=== PATIENT | female | born 1950 | race Caucasian/White ===

== ENCOUNTER 2019-06-29 00:16 | Day surgery (SDC) | payer OTHER, SELFPAY ==
[2019-06-22 14:11] VITALS: BMI 24.6
--- NOTE | 2019-06-27 14:50 | WPDANESEPP ---
Anes - Eval Pre Procedure Procedure: Operation Date: 06/29/19 08:00 Proposed Procedures p Esophagogastroduodenoscopy & Screening Colonoscopy - Gregor Galdamez MD Date/Time: 06/27/19 14:50 Pre Op Diagnosis: Gerd/ Neoplasm Screening, Fam Hx Colon Polyps Patient Data Age: 69 Gender: F Height: 5 ft 5 in Weight: 67.2 kg Allergies Allergy/AdvReac Type Severity Reaction Status Date / Time No Known Allergies Allergy Verified 06/22/19 14:11 Home Medications Medication Instructions Recorded Confirmed Type alprazolam 0.25 mg tablet 0.25 mg PO DAILY #90 tablet 05/25/19 06/22/19 Rx rosuvastatin 10 mg tablet 10 mg PO DAILY #90 tablet 05/25/19 06/22/19 Rx aspirin [Aspirin Low Dose] 81 mg PO DAILY 06/22/19 06/22/19 History omeprazole 40 mg PO DAILY 06/22/19 06/22/19 History Patient hx anesthesia problems: none Family hx anesthesia problems: none PMFSH Past Medical History Medical History (Updated 06/27/19 @ 14:50 by Carina Gomes CRNA) Chronic constipation Hepatitis A Hyperlipidemia Postmenopausal Surgical History Surgical History (Updated 06/27/19 @ 14:50 by Carina Gomes CRNA) H/O mitral valve repair ~2014 Family History Family History Mother Diabetes mellitus, Onset Age: 79 Depression Hypertension Family history of Alzheimer's disease Family history of malignant neoplasm of breast in first degree relative Father Hypertension Family history of cardiovascular disease Family history of kidney disease Malignant neoplasm of prostate, Onset Age: 83 Social History Social History Smoking status: Never smoker Alcohol intake: current Exam Day of Procedure 06/27/19 14:50
[2019-06-29 07:08] VITALS: BP 106/69; PULSE 79; RESP 16; TEMP 36.4; O2SAT 100
[2019-06-29] MEDS: LACTATED RINGERS 1,000 ML 150 ML IV CONT (07:13)
--- NOTE | 2019-06-29 07:38 | P.PNAN_ITS ---
Anes - Eval Final PreProcedure Day of Procedure 06/29/19 07:38 Patient weight: normal Heart: regular rate and rhythm Lungs: clear to auscultation Airway: Mallampati scale class II Neurological: alert and oriented Last oral intake: >/= 8 hours ASA classification: II Emergent: no Anesthetic plan: proceed Anesthesia type and monitoring: general GIVS and standard monitoring Informed Consent: The patient's anesthetic plan and its attendant risks and b enefits were discussed with the patient/family/POA. Questions were solicited and answers provided to the satisfaction of the patient/family/POA.
--- NOTE | 2019-06-29 07:50 | P.CONGI_ITS ---
Assessment and Plan Additional Plan This is a 69-year-old white female patient seen in evaluation at the request of Dr. Maier. Patient complains of epigastric pain for many years. She takes Tums for relief. Because of ongoing pain in EGD is requested. She denies any dysphagia. She denies any chest pain. Her weight has remained stable. Patient's family history is significant her father had colon polyps. Patient states that her own weight appetite are normal. She reports a tendency to constipation. States that she tries to get fiber in her diet. She denies any blood in her stools. Past medical history is significant for hyperlipidemia. Chronic constipation is reported. Current medications include aspirin, rosuvastatin, alprazolam, she was advised to take omeprazole but has not done so. Physical exam reveals her to be alert. Oriented x3. HEENT exam unremarkable. Lungs are clear to auscultation and percussion. Heart is without murmur or extra sounds. Abdominal exam bowel sounds are present soft nontender with no hepatosplenomegaly. Digital external rectal exam is normal. Impression 1. Neoplasia screening. Advised because of family history of colon polyps. 2. Family history of colon polyps in her father. 3. Epigastric pain. Appears to be consistent with dyspepsia. Agree with and has had is. Omeprazole has been suggested in seems appropriate. Further recommendations will be given after EGD. Plan is to proceed with both colonoscopy an EGD today. Colonoscopy may be suggested at intervals in the future because of family history of colon polyps. GI Consult Note Consult date/time: 06/29/19 07:50 HPI: Stephanie Treviño is a 69 year old female [facility] Past Medical History Medical History (Updated 06/27/19 @ 14:50 by Carina Gomes CRNA) Chronic constipation Hepatitis A Hyperlipidemia Postmenopausal Surgical History Surgical History (Updated 06/27/19 @ 14:50 by Carina Gomes CRNA) H/O mitral valve repair ~2014 Family History Family History Mother Diabetes mellitus, Onset Age: 79 Depression Hypertension Family history of Alzheimer's disease Family history of malignant neoplasm of breast in first degree relative Father Hypertension Family history of cardiovascular disease Family history of kidney disease Malignant neoplasm of prostate, Onset Age: 83 Social History Social History Smoking status: Never smoker Alcohol intake: current Meds Home Medications and Allergies Home Medications Medication Instructions Recorded Confirmed Type alprazolam 0.25 mg tablet 0.25 mg PO DAILY #90 tablet 05/25/19 06/22/19 Rx rosuvastatin 10 mg tablet 10 mg PO DAILY #90 tablet 05/25/19 06/22/19 Rx aspirin [Aspirin Low Dose] 81 mg PO DAILY 06/22/19 06/22/19 History omeprazole 40 mg PO DAILY 06/22/19 06/22/19 History Allergies Allergy/AdvReac Type Severity Reaction Status Date / Time No Known Allergies Allergy Verified 06/29/19 07:06 Vital Signs Vital Signs - 24 hr 06/29/19 07:08 Temperature 36.4 C L Pulse Rate 79 Respiratory Rate 16 Blood Pressure 106/69 Pulse Oximetry 100
[2019-06-29] MEDS: BENZOCAINE (*SP) 60 ML SPRAY CAN (HURRICAINE) 1 SPRAY MUCOUS MEM (08:11)
[2019-06-29 08:45] VITALS: BP 107/73; PULSE 88; RESP 18; O2SAT 97
[2019-06-29 08:55] VITALS: BP 110/71; PULSE 76; RESP 20; O2SAT 98
[2019-06-29 09:05] VITALS: BP 115/82; PULSE 84; RESP 17; O2SAT 97
== END 2019-06-29 09:25 | disposition home or self-care (01) ==
PROVIDERS: PCP Family Medicine; Visit Provider Internal Medicine Gastroenterology
PROC: 0DJ08ZZ Inspection of Upper Intestinal Tract, Via Natural or Artificial Opening Endoscopic (ICD-10-PCS; CPT 43235; principal; 2019-06-29 08:00)
DX: Z12.11 Encounter for screening for malignant neoplasm of colon (principal); K57.30 Diverticulosis of large intestine without perforation or abscess without bleeding; K64.8 Other hemorrhoids; Z83.71 Family history of colonic polyps; K22.70 Barrett's esophagus without dysplasia; K21.0 Gastro-esophageal reflux disease with esophagitis; K59.09 Other constipation; E78.5 Hyperlipidemia, unspecified; B15.9 Hepatitis A without hepatic coma; Z79.82 Long term (current) use of aspirin
CPT/HCPCS: 43239; 45378; 88305; J2704; J7120

== ENCOUNTER → 2020-10-26 13:23 | Outpatient (CLI) | payer MEDICARE, OTHER, SELFPAY ==
--- NOTE | ~2020-10-26 | MM_ITS ---
EXAMINATION: MM screening ginna BI w trevor HISTORY: Screening mammogram TECHNIQUE: Craniocaudal and mediolateral oblique 3-D tomosynthesis images were obtained and synthetic 2-D images were generated. CAD analysis was submitted and interpreted. COMPARISON: 08/03/2016, 06/02/2014 bilateral digital screening mammogram examinations............... BREAST PARENCHYMAL COMPOSITION: There are scattered areas of fibroglandular density. FINDINGS: There is no evidence of suspicious mass, calcification, or architectural distortion to sugg est malignancy in either breast. There has been no suspicious interval change. IMPRESSION: 1. No mammographic evidence of malignancy. 2. Recommend routine screening mammography in one year. BI-RADS Category 1: Negative Reviewed, dictated and finalized at location A.
--- NOTE | ~2020-10-26 | DEXA_ITS ---
Bone Density Report Name: Stephanie Delgado Age: 70 Sex: Female Ethnicity: White Date of : 1950 Indication: osteopenia; postmenopausal Referring Provider: Ronnie Segura Study: Bone densitometry was performed. Exam Date: October 26, 2020 Accession number: [id number] Bone Density: Region BMD T-score Z-score Classification AP Spine (L1-L4) 0.764 -2.6 -0.5 Osteoporosis Femoral Neck (Left) 0.745 -0.9 0.8 Normal Total Hip (Left) 0.789 -1.3 0.2 Osteopenia Femoral Neck (Right) 0.741 -1.0 0.8 Normal Total Hip (Right) 0.798 -1.2 0.3 Osteopenia Total Hip Mean 0.793 -1.3 0.3 Osteopenia World Health Organization criteria for BMD impression classify patients as: Normal (T-score at or above -1.0), Osteopenia (T-score between -1.0 and -2.5), or Osteoporosis (T-score at or below -2.5). 10-year Fracture Risk: FRAX not reported because: Some T-score for Spine Total or Hip Total or Femoral Neck at or below -2.5 Previous Exams: Region Exam Age BMD T-score BMD Change BMD Change Date g/cm2 vs Baseline vs Previous AP Spine(L1-L4) 10/26/2020 70 0.764 -2.6 -0.024* -0.024* 08/03/2016 66 0.788 -2.4 Total Hip(Left) 10/26/2020 70 0.789 -1.3 -0.021 -0.021 08/03/2016 66 0.810 -1.1 Total Hip(Right) 10/26/2020 70 0.798 -1.2 -0.034* -0.034* 08/03/2016 66 0.832 -0.9 *Denotes significance at 95% confidence level, LSC for AP Spine = 0.022 g/cm2, LSC for Total Hip = 0.027 g/cm2 Clinical Information Provided by Patient: Has used the following medications: Vitamin D Patient maximum height was 65 Menopause Age: 53 Drinks caffeinated beverages Onset of menses at age 13 Number of children 4 Impression: The patient has osteoporosis, based on the Total Spine T-score. The BMD for the AP Spine(L1-L4) decreased, changing by -0.024 since the last DXA exam. The BMD for the Total Hip(Right) decreased, changing by -0.034 since the last DXA exam. Discussion: INCREASED RISK OF FRACTURE. BONE DENSITY IS UNDESIRABLY LOW AT ONE OR MORE SKELETAL SITES, CONSISTENT WITH POSTMENOPAUSAL OSTEOPOROSIS. This patient's lowest T-score meets the World Health Organization's (WHO) criteria for osteoporosis at one or more sites (T-score -2.5 or below). In untreated patients, the risk of osteoporotic fracture increases approximately two-fold for each 1.0 SD decrease in T-score. Low bone density is not the only risk factor for fra
== END ==
PROVIDERS: PCP Family Medicine; Visit Provider Physician Assistant Medical
DX: Z12.31 Encounter for screening mammogram for malignant neoplasm of breast (principal); Z78.0 Asymptomatic menopausal state; M81.0 Age-related osteoporosis without current pathological fracture; M85.851 Other specified disorders of bone density and structure, right thigh; M85.852 Other specified disorders of bone density and structure, left thigh
CPT/HCPCS: 77063; 77067; 77080

== ENCOUNTER 2021-08-02 09:49 | Outpatient (CLI) | payer MEDICARE, OTHER, SELFPAY ==
--- NOTE | 2021-08-02 09:53 | EST_ITS ---
Patient Info Name: Stephaine Treviño Age: 71 years : 1950 Gender: Female Ht: 65 in Wt: 150 lbs BSA: 1.78 m2 HR: 91 bpm BP: 107 / 81 mmHg Technical Quality: Good Exam Date: 08/02/2021 11:19 AM Exam Location: [facility] Pulmonary Exam Room: [facility] STRESS [facility] Patient Status: Outpatient Admit Date: 08/02/2021 Staff Ordering Physician: Tanner Maier MD Management Engineer: Rebecca Almonte RDCS Attending Provider: DR. SLOAN Referring Physician: Darrion HENDRICKSON; Exercise Technologist: Moshe Madrigal RDCS, RT Exam Type: CA stress echo Study Info Indications - HYPERTENSION Treadmill exercise stress echocardiogram is performed. Summary 1. 1. Negative Tyree exercise stress test for ischemic ST changes by ECG criteria. 2. 2. Good functional capacity, achieving 8.9 METs of workload. 3. 3. Appropriate HR response to exercise. 4. 4. Appropriate HR recovery at 1 minute post exercise. 5. 5. Frequent ventricular ectopics. 6. 6. Incidental finding of mitral valve thickening with mild-mod mitral regurgitation. 7. 7. Patient informed of the above results. Stress Echo Findings Left Ventricle Appropriate increase in LV endocardial thickening with systole. Appropriate augmentation of contractility with systole. No wall motion abnormality. Left Ventricle Normal LV systolic function, no wall motion abnormality. Mitral Valve Incidental finding of thickening of mitral valve leaflet and mild-mod mitral regurgitation. Protocol: Tyree Stress ECG Details Stage: REST Duration (min): 1 min : 25 sec Speed (mph): 0.0 Grade (%): 0 HR (bpm): 86 SBP (mmHg): 107 DBP (mmHg): 81 METS: --- Stage: REST Duration (min): 9 min : 59 sec Speed (mph): 0.0 Grade (%): 0 HR (bpm): 101 SBP (mmHg): 107 DBP (mmHg): 81 METS: --- Stage: STAGE 1 Duration (min): 1 min : 0 sec Speed (mph): 1.7 Grade (%): 10 HR (bpm): 110 SBP (mmHg): 107 DBP (mmHg): 81 METS: --- Stage: STAGE 1 Duration (min): 2 min : 0 sec Speed (mph): 1.7 Grade (%): 10 HR (bpm): 116 SBP (mmHg): 107 DBP (mmHg): 81 METS: --- Stage: STAGE 1 Duration (min): 3 min : 0 sec Speed (mph): 1.7 Grade (%): 10 HR (bpm): 123 SBP (mmHg): 153 DBP (mmHg): 89 METS: --- Stage: STAGE 2 Duration (min): 1 min : 0 sec Speed (mph): 2.5 Grade (%): 12 HR (bpm): 134 SBP (mmHg): 153 DBP (mmHg): 89 METS: --- Stage: STAGE 2 Duration (min): 2 min : 0 sec Speed (mph): 2.5 Grade (%): 12 HR (bpm): 138 SBP (mmHg): 170 DBP (mmHg): 82 METS: --- Stage: STAGE 2 Duration (min): 3 min : 0 sec Speed (mph): 2.5 Grade (%): 12 HR (bpm): 140 SBP (mmHg): 170 DBP (mmHg): 82 METS: --- Stage: STAGE 3 Duration (min): 1 min : 0 sec Speed (mph): 3.4 Grade (%): 14 HR (bpm): 146 SBP (mmHg): 178 DBP (mmHg): 88 METS: --- Stage: STAGE 3 Duration (min): 1 min : 12 sec Speed (mph
== END 2021-08-02 09:50 | disposition home or self-care (01) ==
LOC: ANHCARD 09:51
PROVIDERS: PCP Family Medicine; Visit Provider Family Medicine
DX: I10 Essential (primary) hypertension (principal)
CPT/HCPCS: 93351

== ENCOUNTER → 2021-09-26 14:01 | Outpatient (CLI) | payer MEDICARE, OTHER, SELFPAY ==
--- NOTE | ~2021-09-26 | US_ITS ---
EXAMINATION: US soft tissue head and neck DATE: 09/26/2021 14:22 INDICATION: Localized enlarged lymph nodes, left neck. TECHNIQUE: Multiple grayscale and Doppler ultrasound images of the neck were obtained. COMPARISON: None FINDINGS: There are normal lymph nodes in left neck in the patient's area of concern. No abnormal mas s. IMPRESSION: 1. Normal lymph nodes in left neck in the patient's area of concern. Reviewed, dictated and finalized at location E.
== END ==
PROVIDERS: PCP Family Medicine; Visit Provider Physician Assistant
DX: R59.0 Localized enlarged lymph nodes (principal)
CPT/HCPCS: 76536

== ENCOUNTER → 2021-12-27 09:31 | Outpatient (CLI) | payer MEDICARE, OTHER, SELFPAY ==
--- NOTE | ~2021-12-27 | XR_ITS ---
XR lumbar spine min 4V DATE: 12/27/2021 10:10 INDICATION: Lumbar radiculopathy TECHNIQUE: AP, lateral, coned lateral lumbosacral and bilateral oblique views COMPARISON: None FINDINGS: There is diffuse osteopenia. There is grade 1 anterolisthesis at L4-5, likely due to prominent degenerative changes apophyseal kenyetta nts. There is moderately severe degenerative disc disease at L5-S1. The lumbar interspaces are well preser liborio. No spondylolysis. The lumbar and included T11 and T12 pedicles are intact. No fracture or bone destru ction is detected. The sacroiliac joints are intact. IMPRESSION: Osteopenia Grade 1 anterolisthesis at L4-5 Moderately severe degenerative disc disease at L5-S1 Reviewed, dictated and finalized at location B.
== END ==
PROVIDERS: PCP Family Medicine; Visit Provider Physician Assistant
DX: M47.27 Other spondylosis with radiculopathy, lumbosacral region (principal)
CPT/HCPCS: 72110

== ENCOUNTER → 2022-02-02 15:17 | Outpatient (CLI) | payer MEDICARE, OTHER, SELFPAY ==
--- NOTE | ~2022-02-02 | MM_ITS ---
EXAMINATION: MM screening ginna BI w trevor HISTORY: Screening mammogram TECHNIQUE: Craniocaudal and mediolateral oblique 3-D tomosynthesis images were obtained and synthetic 2-D images were generated. CAD analysis was submitted and interpreted. COMPARISON: This is likely 01/2021, 08/03/2016 bilateral screening mammogram examinations BREAST PARENCHYMAL COMPOSITION: There are scattered areas of fibroglandular density. FINDINGS: There is no evidence of suspicious mass, calcification, or architectural distortion to sugg est malignancy in either breast. There has been no suspicious interval change. IMPRESSION: 1. No mammographic evidence of malignancy. 2. Recommend routine screening mammography in one year. BI-RADS Category 1: Negative Reviewed, dictated and finalized at location A.
== END ==
PROVIDERS: PCP Family Medicine; Visit Provider Family Medicine
DX: Z12.31 Encounter for screening mammogram for malignant neoplasm of breast (principal)
CPT/HCPCS: 77063; 77067

== ENCOUNTER 2022-05-28 09:23 | Outpatient (CLI) | payer MEDICARE, OTHER, SELFPAY ==
[2022-05-28 09:48] LABS: Hemoglobin A1C 5.8 % (<5.7)
[2022-05-28 09:51] LABS: Alanine Aminotransferase 19 U/L (6-35); Albumin Level 4.3 g/dL (3.5-5.1); Alkaline Phosphatase 51 U/L (38-126); Anion Gap 4 mmol/L (8-16); Aspartate Amino Transferase 24 U/L (14-36); Bilirubin,Total 0.4 mg/dL (0.2-1.3); Blood Urea Nitrogen 15 mg/dL (7-17); Calcium 9.4 mg/dL (8.4-10.2); Carbon Dioxide 31 mmol/L (22-30); Chloride 106 mmol/L (98-107); Cholesterol 288 mg/dL (0-200); Estimated Glomerular Filt Rate > 60; Glucose 111 mg/dL (65-110); HDL Direct 67 mg/dL; Potassium 4.4 mmol/L (3.4-5.0); Sodium 141 mmol/L (137-145); Triglycerides 76 mg/dL (<150)
[2022-05-28 10:01] LABS: LDL Cholesterol Direct 154 mg/dL
[2022-05-28 10:27] LABS: Vitamin D 25 Hydroxy 82.6 ng/mL
== END 2022-05-28 09:24 | disposition home or self-care (01) ==
PROVIDERS: Visit Provider Physician Assistant
DX: E83.52 Hypercalcemia (principal); E78.2 Mixed hyperlipidemia; R73.03 Prediabetes
CPT/HCPCS: 36415; 80053; 80061; 82306; 83036

== ENCOUNTER 2022-05-28 13:05 | Outpatient (CLI) | payer MEDICARE, OTHER, SELFPAY ==
--- NOTE | ~2022-05-28 | MR_ITS ---
EXAMINATION: MR lumbar spine wo con DATE: 05/28/2022 13:31 INDICATION: Right-sided lumbar radiculopathy. Low back pain. TECHNIQUE: Magnetic resonance imaging (MRI) of the lumbar spine was performed without intravenous con trast. Sequences included sagittal T2-weighted FSE, sagittal T2-weighted FS FSE, sagittal T1-weighted FSE, and axial T2-weighted FSE. COMPARISON: Lumbar spine radiographs 12/27/2021 FINDINGS: There is 6 mm anterolisthesis of L4 on L5 and 3 mm retrolisthesis of L5 on S1. Vertebral juan dy heights are normal. There is mildly decreased disc height at L4-L5 and severely decreased disc hei ght at L5-S1 with endplate remodeling. The distal spinal cord signal intensity is normal. The conus m edullaris is at L1. The following disc levels are specifically discussed: L1-L2: The disc does not extend beyond the endplate margin. There is mild bilateral facet joint osteo arthritis. There is no neural foraminal stenosis. There is no central canal stenosis. L2-L3: The disc is mildly bulging. There is moderate bilateral facet joint osteoarthritis. There is m ild bilateral neural foraminal stenosis. There is no central canal stenosis. L3-L4: The disc is mildly bulging. There is severe bilateral facet joint osteoarthritis. There is mil d bilateral neural foraminal stenosis. There is no central canal stenosis. L4-L5: The disc is bulging and has an annular fissure. There is severe bilateral facet joint osteoart hritis. There is moderate bilateral neural foraminal stenosis. There is mild central canal stenosis. L5-S1: The disc is bulging and has an annular fissure. There is severe bilateral facet joint osteoart hritis. There is mild bilateral neural foraminal stenosis. There is mild central canal stenosis. IMPRESSION: 1. Severe lower lumbar spondylosis. Reviewed, dictated and finalized at location A. ICIAN SCRIBE
== END 2022-05-28 13:06 ==
LOC: MICIMG 13:06
PROVIDERS: PCP Family Medicine; Visit Provider Physician Assistant
DX: M54.30 Sciatica, unspecified side (principal); M51.37 Other intervertebral disc degeneration, lumbosacral region; M47.816 Spondylosis without myelopathy or radiculopathy, lumbar region
CPT/HCPCS: 72148

== ENCOUNTER → 2022-06-26 10:39 | Outpatient (CLI) | payer MEDICARE, OTHER, SELFPAY ==
--- NOTE | ~2022-06-26 | XR_ITS ---
AP and lateral views of the right tibia/fibula Clinical History: Pain Findings: No acute fracture or dislocation is seen. Osseous alignment is anatomic. Joint spaces are p reserved without significant erosive or degenerative change. Soft tissues are unremarkable. Impression: Unremarkable right tib-fib radiographs. Reviewed, dictated and finalized at [facility]. LEWARE ADMINISTRATOR Impression: Unremarkable right tib-fib radiographs.
== END ==
PROVIDERS: PCP Family Medicine; Visit Provider Nurse Practitioner
DX: M79.661 Pain in right lower leg (principal)
CPT/HCPCS: 73590

== ENCOUNTER 2022-09-27 11:21 | Outpatient (CLI) | payer MEDICARE, OTHER, SELFPAY ==
[2022-09-27 12:00] LABS: Alanine Aminotransferase 19 U/L (6-35); Albumin Level 4.2 g/dL (3.5-5.1); Alkaline Phosphatase 45 U/L (38-126); Anion Gap 4 mmol/L (8-16); Aspartate Amino Transferase 32 U/L (14-36); Bilirubin,Total 0.6 mg/dL (0.2-1.3); Blood Urea Nitrogen 21 mg/dL (7-17); Calcium 9.7 mg/dL (8.4-10.2); Carbon Dioxide 31 mmol/L (22-30); Chloride 103 mmol/L (98-107); Cholesterol 226 mg/dL (0-200); Estimated Glomerular Filt Rate > 60; Glucose 106 mg/dL (65-110); HDL Direct 63 mg/dL; Potassium 4.4 mmol/L (3.4-5.0); Sodium 138 mmol/L (137-145); Triglycerides 68 mg/dL (<150)
[2022-09-27 12:10] LABS: LDL Cholesterol Direct 129 mg/dL
[2022-09-27 13:50] LABS: Hemoglobin A1C 5.7 % (<5.7)
== END 2022-09-27 11:22 | disposition home or self-care (01) ==
LOC: ANHLAB 11:26
PROVIDERS: PCP Family Medicine; Visit Provider Family Medicine
DX: E78.2 Mixed hyperlipidemia (principal); E83.52 Hypercalcemia; R73.03 Prediabetes
CPT/HCPCS: 36415; 80053; 80061; 83036

== ENCOUNTER 2023-03-18 13:54 | Outpatient (CLI) | payer MEDICARE, OTHER, SELFPAY ==
--- NOTE | ~2023-03-18 | MM_ITS ---
CORRECTED REPORT exam description [facility] 03/21/23 This report was recreated on 03/21/23. Original report was EXAMINATION: MM screening mammo BI w trevor HISTORY: Screening mammogram TECHNIQUE: Full field digital craniocaudal and mediolateral oblique views of both breasts were obtained. CAD analysis was submitted and interpreted. COMPARISON: 02/02/2022, 10/26/2020, 08/03/2016 BREAST PARENCHYMAL COMPOSITION: There are scattered areas of fibroglandular density. FINDINGS: There is no evidence of suspicious mass, calcification, or architectural distortion to suggest malignancy in either breast. There has been no suspicious interval change. IMPRESSION: 1. No mammographic evidence of malignancy. Recommend routine screening mammography in one year. BI-RADS Category 1: Negative Reviewed, dictated and finalized at location A. MTDD IMPRESSION: 1. No mammographic evidence of malignancy. Recommend routine screening mammogra phy in one year. BI-RADS Category 1: Negative
--- NOTE | ~2023-03-18 | DEXA_ITS ---
Bone Density Report Name: CHEL EMERY Age: 72 Sex: Female Ethnicity: White Date of : 1950 Indication: postmenopausal; screening for osteoporosis; height loss; Referring Provider: JANIE SALINAS Study: Bone densitometry was performed. Exam Date: March 18, 2023 Accession number: [id number] Bone Density: Region BMD T-score Z-score Classification AP Spine(L1-L4) 0.875 -1.6 0.6 Osteopenia Femoral Neck (Left) 0.731 -1.1 0.8 Osteopenia Total Hip (Left) 0.893 -0.4 1.2 Normal Femoral Neck (Right) 0.786 -0.6 1.3 Normal Total Hip (Right) 0.875 -0.6 1.0 Normal Femoral Neck Mean 0.758 -0.8 1.1 Normal Total Hip Mean 0.884 -0.5 1.1 Normal World Health Organization criteria for BMD impression classify patients as: Normal (T-score at or above -1.0), Osteopenia (T-score between -1.0 and -2.5), or Osteoporosis (T-score at or below -2.5). 10-year Fracture Risk: FRAX not reported because: Treated for osteoporosis Clinical Information Provided by Patient: Is being treated for osteoporosis Has used the following medications: Prolia (i.e. denosumab) Patient maximum height was 66 Menopause Age: 51 Drinks caffeinated beverages Onset of menses at age 13 Number of children 4 Impression: The patient has low bone mass, based on the Total Spine T-score. Discussion: It is important to ask patients whether they are taking their medications and to encourage continued and appropriate compliance with their osteoporosis therapies to reduce fracture risk. It is also important to review their risk factors and encourage appropriate calcium and vitamin D intakes, exercise, fall prevention and other lifestyle measures. Follow-Up: Consider a repeat BMD and Vertebral Fracture Assessment (VFA) exam in 2 years or sooner if medically necessary, to reassess this patient's status. Reported by: Dr. Sharif Jefferson on 03/18/2023 2:33:00 PM. Reviewed, dictated and finalized at location A. [facility]
== END 2023-03-18 13:55 | disposition home or self-care (01) ==
LOC: CHSIMG 13:57
PROVIDERS: PCP Family Medicine; Visit Provider Family Medicine
DX: Z12.31 Encounter for screening mammogram for malignant neoplasm of breast (principal); Z78.0 Asymptomatic menopausal state; Z80.3 Family history of malignant neoplasm of breast; M85.89 Other specified disorders of bone density and structure, multiple sites
CPT/HCPCS: 77063; 77067; 77080

== ENCOUNTER 2023-03-27 10:04 | Outpatient (CLI) | payer MEDICARE, OTHER, SELFPAY ==
[2023-03-27 10:44] LABS: Basophils Percent Auto 0.7 % (0.2-1.2); Eosinophils Absolute Auto 0.1 K/mm3 (0-0.3); Eosinophils Percent Auto 1.4 % (0-4.4); Hematocrit 39.2 % (37.0-47.0); Hemoglobin 12.9 g/dL (12.0-15.0); Immature Granulocyte Absolute 0.01 K/mm3 (0.00-0.031); Immature Granulocyte Percent A 0.2 % (0-0.5); Lymphocytes Absolute Auto 1.56 K/mm3 (0.9-3.2); Lymphocytes Percent Auto 35.3 % (18.3-44.2); Mean Corpuscular HGB Conc 32.9 g/dl (32-36); Mean Corpuscular Hemoglobin 31.5 pg (26-34); Mean Corpuscular Volume 95.6 fl (80-100); Mean Platelet Volume 10.5 fl (7.4-10.4); Monocytes Absolute Auto 0.3 K/mm3 (0.1-0.6); Monocytes Percent Auto 7.5 % (2.6-8.5); Neutrophils Absolute Auto 2.4 K/mm3 (1.3-6.7); Neutrophils Percent Auto 54.9 % (45.5-73.1); Platelet Count Result 214 k/mm3 (150-375); Red Cell Distribution Width 13.5 % (11.5-14.5); White Blood Count 4.4 K/mm3 (4.5-10.0)
[2023-03-27 10:54] LABS: Anion Gap 3 mmol/L (8-16); Blood Urea Nitrogen 17 mg/dL (7-17); Calcium 9.7 mg/dL (8.4-10.2); Carbon Dioxide 28 mmol/L (22-30); Chloride 104 mmol/L (98-107); Cholesterol 262 mg/dL (0-200); Estimated Glomerular Filt Rate > 60; Glucose 103 mg/dL (65-110); HDL Direct 73 mg/dL; Hemoglobin A1C 5.7 % (<5.7); Potassium 4.6 mmol/L (3.4-5.0); Sodium 135 mmol/L (137-145); Triglycerides 81 mg/dL (<150)
[2023-03-27 11:06] LABS: LDL Cholesterol Direct 141 mg/dL
[2023-03-27 11:27] LABS: Thyroid Stimulating Hormone 0.524 uIU/mL (0.465-4.680)
== END 2023-03-27 10:05 | disposition home or self-care (01) ==
PROVIDERS: PCP Family Medicine; Visit Provider Nurse Practitioner Family
DX: E78.2 Mixed hyperlipidemia (principal); R73.03 Prediabetes; I38 Endocarditis, valve unspecified; N39.3 Stress incontinence (female) (male); E55.9 Vitamin D deficiency, unspecified
CPT/HCPCS: 36415; 80048; 80061; 82306; 83036; 84443; 85025

== ENCOUNTER 2023-04-04 00:46 | Day surgery (SDC) | payer MEDICARE, OTHER, SELFPAY ==
[2023-03-21 10:39] VITALS: BMI 25.5
--- NOTE | 2023-04-02 10:22 | SUR.PREOP ---
Patient called regarding upcoming procedure. Reviewed preop instructions, appointment times, and procedure prep.
[2023-04-04 08:39] VITALS: BP 106/57; PULSE 68; RESP 16; TEMP 36.1; O2SAT 98
[2023-04-04] MEDS: LACTATED RINGERS 1,000 ML 150 ML IV CONT (08:50)
--- NOTE | 2023-04-04 08:58 | PM.HPGS ---
History of Present Illness History of Present Illness Consent: Risks, benefits, and alternatives have been discussed and questions answered. Patient agrees to proceed with procedure. Chief complaint: Stover's W/O dysplasia Narrative: Stephanie Treviño is a 72 year old female Presents for EGD. Patient is known to have GE reflux and Stover's esophagus. She currently denies any heartburn symptoms. She has no pain. No dysphagia. Currently maintained on omeprazole 40mg p.o. daily. This gives her good relief. Review of Systems Review of Systems: Review of systems noncontributory. [facility] Past Medical History Medical History Acute, but ill-defined, cerebrovascular disease Stover's esophagus Chest pain Chronic constipation Cognitive impairment Gluteal tendinitis of left buttock Hepatitis A History of bone density study (~08/03/16) osteopenia History of measles History of Papanicolaou smear of cervix (~04/23/16) HPV neg Hyperlipidemia Insomnia Mammogram normal (~08/03/16) Medication side effects present Need for SBE (subacute bacterial endocarditis) prophylaxis Osteoporosis Polyp of cervix uteri Postmenopausal Prediabetes Unspecified vitamin D deficiency Surgical History Surgical History H/O mitral valve repair ~2014 History of colonoscopy (~12/17/12) Dr Galdamez History of colonoscopy (~06/29/19) Family History Family History Mother , age 79 Diabetes mellitus, Onset Age: 79 Depression Hypertension Family history of Alzheimer's disease Family history of malignant neoplasm of breast in first degree relative Lewy body dementia Father , age 83 Hypertension Family history of cardiovascular disease Family history of kidney disease Malignant neoplasm of prostate, Onset Age: 83 Congestive heart failure Sibling Heart disease heart valve Sibling , in childhood No problems noted. Sibling Hypertension Daughter Age: 42 Overweight Daughter Age: 39 Overweight Daughter Age: 29 Rheumatoid arthritis Daughter Age: 25 No problems noted. Social History Social History Smoking status: Never smoker Alcohol intake: current Drinks per week: 1 Substance use type: does not use Lack of Transportation: No Lack of Food: Never True Current Housing: I Have Housing Concerned About Future Housing: No Difficulty Paying Gas/Electric Bills: No Difficulty Paying for Meds: No Currently Unemployed: No Education: Master's Degree or Higher Difficulty w/ Childcare or Family Care: No Living arrangements: with family Spiritual care concerns: No Meds Home Medications and Allergies Home Medications Medication Instructions Recorded Confirmed Type aspirin 81 mg tablet,delayed 81 mg PO DAILY 06/22/19 04/04/23 History release (Joseluis Low Dose Aspirin) melatonin 5 mg capsule 5 mg PO HS 07/20/20 04/04/23 History trazodone 50 mg tablet 100 mg PO QHS PRN insomnia #180 10/19/21 04/04/23 Rx tabs denosumab 60 mg/mL subcutaneous 60 mg subcut [id number] #1 mL 01/24/22 04/04/23 Rx syringe (Prolia) hydrocortisone 2.5 % topical 1 applic topical BID-TID PRN 03/26/22 04/04/23 Rx ointment itching #28.35 grams omega-3 fatty acids 1,000 mg 1,000 mg PO DAILY 03/26/22 04/04/23 History capsule triamcinolone acetonide 0.1 % 1 applic topical QID #80 grams 05/31/22 04/04/23 Rx topical cream estradiol 0.01% (0.1 mg/gram) 0.5 appful vaginal 3XW #129 grams 08/24/22 04/04/23 Rx vaginal cream cholecalciferol (vitamin D3) 1,250 1,250 mcg PO WEEKLY #13 caps 09/03/22 04/04/23 Rx mcg (50,000 unit) capsule omeprazole 40 mg capsule,delayed 40 mg PO DAILY #90 caps 10/26/22 04/04/23 Rx release alprazolam
--- NOTE | 2023-04-04 09:05 | WPDANESEPPF ---
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 Patient Data Age: 72 Gender: F Height: 1.63 m Weight: 67.7 kg Last Vital Signs Temp 97.0 F L 04/04/23 08:39 Pulse 68 04/04/23 08:39 Resp 16 04/04/23 08:39 BP 106/57 L 04/04/23 08:39 Pulse Ox 98 04/04/23 08:39 O2 Del Method Room Air 04/04/23 08:39 Allergies Allergy/AdvReac Type Severity Reaction Status Date / Time rosuvastatin [From Crestor] AdvReac tendinopath Verified 04/04/23 08:36 y Home Medications Medication Instructions Recorded Confirmed Type aspirin 81 mg tablet,delayed 81 mg PO DAILY 06/22/19 04/04/23 History release (Joseluis Low Dose Aspirin) melatonin 5 mg capsule 5 mg PO HS 07/20/20 04/04/23 History trazodone 50 mg tablet 100 mg PO QHS PRN insomnia #180 10/19/21 04/04/23 Rx tabs denosumab 60 mg/mL subcutaneous 60 mg subcut [id number] #1 mL 01/24/22 04/04/23 Rx syringe (Prolia) hydrocortisone 2.5 % topical 1 applic topical BID-TID PRN 03/26/22 04/04/23 Rx ointment itching #28.35 grams omega-3 fatty acids 1,000 mg 1,000 mg PO DAILY 03/26/22 04/04/23 History capsule triamcinolone acetonide 0.1 % 1 applic topical QID #80 grams 05/31/22 04/04/23 Rx topical cream estradiol 0.01% (0.1 mg/gram) 0.5 appful vaginal 3XW #129 grams 08/24/22 04/04/23 Rx vaginal cream cholecalciferol (vitamin D3) 1,250 1,250 mcg PO WEEKLY #13 caps 09/03/22 04/04/23 Rx mcg (50,000 unit) capsule omeprazole 40 mg capsule,delayed 40 mg PO DAILY #90 caps 10/26/22 04/04/23 Rx release alprazolam 0.25 mg tablet (Xanax) 0.25 mg PO DAILY #90 tabs 11/14/22 04/04/23 Rx ibuprofen 400 mg tablet 400 mg PO ONCE #90 tabs 02/06/23 04/04/23 Rx Patient hx anesthesia problems: none Family hx anesthesia problems: none Results Review: All pre-operative results and documents have been reviewed as part of the pre-operative evaluation. [facility] Past Medical History Medical History Acute, but ill-defined, cerebrovascular disease Stover's esophagus Chest pain Chronic constipation Cognitive impairment Gluteal tendinitis of left buttock Hepatitis A History of bone density study (~08/03/16) osteopenia History of measles History of Papanicolaou smear of cervix (~04/23/16) HPV neg Hyperlipidemia Insomnia Mammogram normal (~08/03/16) Medication side effects present Need for SBE (subacute bacterial endocarditis) prophylaxis Osteoporosis Polyp of cervix uteri Postmenopausal Prediabetes Unspecified vitamin D deficiency Surgical History Surgical History H/O mitral valve repair ~2014 History of colonoscopy (~12/17/12) Dr Galdamez History of colonoscopy (~06/29/19) Family History Family History Mother , age 79 Diabetes mellitus, Onset Age: 79 Depression Hypertension Family history of Alzheimer's disease Family history of malignant neoplasm of breast in first degree relative Lewy body dementia Father , age 83 Hypertension Family history of cardiovascular disease Family history of kidney disease Malignant neoplasm of prostate, Onset Age: 83 Congestive heart failure Sibling Heart disease heart valve Sibling , in childhood No problems noted. Sibling Hypertension Daughter Age: 42 Overweight Daughter Age: 39 Overweight Daughter Age: 29 Rheumatoid arthritis Daughter Age: 25 No problems noted. Social History Social History Smoking status: Never smoker Alcohol intake: current Drinks per week: 1 Substance use type: does not use Lack of Transpor
[2023-04-04 09:23] VITALS: BP 101/65; PULSE 62; RESP 17; O2SAT 100
[2023-04-04 09:33] VITALS: BP 127/83; PULSE 58; RESP 20; O2SAT 100
[2023-04-04 09:43] VITALS: BP 123/81; PULSE 59; RESP 22; O2SAT 100
== END 2023-04-04 09:59 | disposition home or self-care (01) ==
PROVIDERS: PCP Family Medicine; Visit Provider Internal Medicine Gastroenterology
PROC: 0DJ08ZZ Inspection of Upper Intestinal Tract, Via Natural or Artificial Opening Endoscopic (ICD-10-PCS; CPT 43235; principal; 2023-04-04 09:30)
DX: K22.70 Barrett's esophagus without dysplasia (principal); E78.5 Hyperlipidemia, unspecified; K59.09 Other constipation; M81.0 Age-related osteoporosis without current pathological fracture; R73.03 Prediabetes; E55.9 Vitamin D deficiency, unspecified; I67.89 Other cerebrovascular disease; Z79.82 Long term (current) use of aspirin
CPT/HCPCS: 43239; 88305; J2704; J7120

== ENCOUNTER 2023-08-28 18:25 | Emergency (ER) | payer MEDICARE, SELFPAY ==
--- NOTE | ~2023-08-28 | XR_ITS ---
XR chest 2V 08/28/2023 18:55 Indication: Shortness of breath Procedure: PA and lateral views of the chest Comparison: No prior studies for comparison. Findings: Status post median sternotomy for CABG. Heart size normal. The lungs are hyperinflated whic h is consistent with, but not diagnostic of chronic obstructive pulmonary disease. There is bibasilar atelectasis. No significant effusion or pneumothorax. Impression: 1: Bibasilar atelectasis. Reviewed, dictated and finalized at location A. Impression: 1: Bibasilar atelectasis.
--- NOTE | 2023-08-28 18:36 | ED.URI ---
HPI - URI/Sore Throat General Chief Complaint: Upper Respiratory Infection Stated Complaint: COUGH/FEVER/CHILLS/RUNNY NOSE Time Seen by Provider: 08/28/23 18:36 Source: patient Mode of arrival: ambulatory Limitations: no limitations History of Present Illness HPI Narrative: 73-year-old female presents with complaint of scratchy throat, fatigue, congestion, mild headache for 3 days. States yesterday she began to feel much worse with cough, fever, shortness of breath with exertion. Denies nausea vomiting diarrhea. Took prescribed Robitussin with codeine but ran out today. States she had some of this medicine left from previous prescription. Has not taking any medications to treat her fever. All systems reviewed and negative except as noted above. Related Data Home Medications Medication Instructions Recorded Confirmed aspirin 81 mg tablet,delayed 81 mg PO DAILY 06/22/19 08/28/23 release (Joseluis Low Dose Aspirin) melatonin 5 mg capsule 5 mg PO HS 07/20/20 08/28/23 omega-3 fatty acids 1,000 mg 1,000 mg PO DAILY 03/26/22 08/28/23 capsule Allergies Allergy/AdvReac Type Severity Reaction Status Date / Time rosuvastatin [From Crestor] AdvReac tendinopath Verified 08/28/23 18:32 y Review of Systems Review of Systems: CONSTITUTIONAL: Reports fever, chills, or sweats. EYES: Denies visual changes, redness, or discharge. ENT: Reports rhinorrhea, congestion, sore throat. Denies otalgia. CARDIOVASCULAR: Denies chest pain, palpitations, or edema. RESPIRATORY: Reports cough and dyspnea with exertion. GASTROINTESTINAL: Denies abdominal pain, nausea, vomiting, or diarrhea. GENITOURINARY: Denies dysuria or hematuria. SKIN: Denies rash or itching. MUSCULOSKELETAL: Denies back pain, joint pain, or myalgia. NEUROLOGIC: Denies headache, numbness, or weakness. PSYCHIATRIC: Denies anxiety or depression. All other systems reviewed are negative, except as documented in HPI. [facility] Past Medical History Medical History Acute, but ill-defined, cerebrovascular disease Stover's esophagus Chest pain Chronic constipation Cognitive impairment Gluteal tendinitis of left buttock Hepatitis A History of bone density study (~03/17/17) osteopenia History of measles History of Papanicolaou smear of cervix (~04/23/16) HPV neg Hyperlipidemia Insomnia Mammogram normal (~08/03/16) Medication side effects present Need for SBE (subacute bacterial endocarditis) prophylaxis Osteoporosis Polyp of cervix uteri Postmenopausal Prediabetes Unspecified vitamin D deficiency Surgical History Surgical History H/O mitral valve repair ~2014 History of colonoscopy (~12/17/12) Dr Galdamez History of colonoscopy (~06/29/19) Family History Family History Mother , age 79 Diabetes mellitus, Onset Age: 79 Depression Hypertension Family history of Alzheimer's disease Family history of malignant neoplasm of breast in first degree relative Lewy body dementia Father , age 83 Hypertension Family history of cardiovascular disease Family history of kidney disease Malignant neoplasm of prostate, Onset Age: 83 Congestive heart failure Sibling Heart disease heart valve Sibling , in childhood No problems noted. Sibling Hypertension Daughter Age: 43 Overweight Daughter Age: 40 Overweight Daughter Age: 30 Rheumatoid arthritis Daughter Age: 26 No problems noted. Social History Social History Smoking status: Never smoker Alcohol intake: current Drinks per week: 1 Substance use type: does not use Lack of Transportation: No Lack of Food: Never True Current Housing: I Have Housing Concerned About Future Housing: No Difficulty Payin
[2023-08-28 18:38] VITALS: BP 120/80; PULSE 86; RESP 16; TEMP 38.5; O2SAT 96
== END 2023-08-28 19:18 | disposition home or self-care (01) ==
PROVIDERS: Emergency Provider Nurse Practitioner Family; PCP Family Medicine
DX: J06.9 Acute upper respiratory infection, unspecified (principal); Z20.822 Contact with and (suspected) exposure to COVID-19; K22.70 Barrett's esophagus without dysplasia; E78.5 Hyperlipidemia, unspecified; M81.0 Age-related osteoporosis without current pathological fracture; R73.03 Prediabetes; Z79.82 Long term (current) use of aspirin
CPT/HCPCS: 71046; 87081; 87426; 87804; 87880; 99213; G0463

== ENCOUNTER 2023-09-13 12:59 | Outpatient (CLI) | payer MEDICARE, SELFPAY ==
--- NOTE | 2023-09-13 13:13 | ECHO_ITS ---
Patient Info Name: Stephanie Treviño Age: 73 years : 1950 Gender: Female Ht: 65 in Wt: 150 lbs BSA: 1.78 m2 HR: 100 bpm BP: 116 / 74 mmHg Technical Quality: Fair Exam Date: 09/13/2023 1:23 PM Exam Location: Echo Lab Patient Status: Outpatient Admit Date: 09/13/2023 Staff Ordering Physician: Tanner Maier MD Warranty Manager: Ryan Neville RDCS Attending Provider: Tanner Maier MD Referring Physician: Darrion HENDRICKSON; Exam Type: CA echo dop color flow w con Study Info Indications I34.0 - Nonrheumatic mitral (valve) insufficiency Complete two-dimensional, color flow and Doppler transthoracic echocardiogram is performed. Summary 1. Complete two-dimensional, color flow and Doppler transthoracic echocardiogram is performed. 2. Left ventricular chamber dimension is mildly enlarged. 3. Left ventricular systolic function is normal, estimated at 55-60%. 4. The left ventricular diastolic function is grade I diastolic dysfunction. 5. E/e' 25 is elevated. 6. Left atrial chamber dimension is moderately enlarged. 7. Right atrial chamber dimension is mildly enlarged. 8. There is trace aortic valve regurgitation. 9. The mitral valve has severe posterior calcified annulus. 10. There is mild mitral valve regurgitation. 11. There is mild tricuspid valve regurgitation. 12. No pulmonary hypertension, estimated pulmonary arterial systolic pressure is 30 mmHg. 13. There is trace pulmonic regurgitation. Left Ventricle E/e' 25 is elevated. Left ventricular chamber dimension is mildly enlarged. Left ventricular systolic function is normal, estimated at 55-60%. The left ventricular diastolic function is grade I diastolic dysfunction. Right Ventricle Right ventricular chamber dimension is normal. Right ventricular systolic function is normal. Left Atria Left atrial chamber dimension is moderately enlarged. Right Atria Right atrial chamber dimension is mildly enlarged. Aortic Valve The aortic valve is trileaflet. There is no aortic valve stenosis. There is trace aortic valve regurgitation. Pulmonic Valve There is trace pulmonic regurgitation. Mitral Valve The mitral valve has severe posterior calcified annulus. There is no mitral valve stenosis. There is mild mitral valve regurgitation. Tricuspid Valve There is mild tricuspid valve regurgitation. No pulmonary hypertension, estimated pulmonary arterial systolic pressure is 30 mmHg. Pericardium/Pleural There is no pericardial effusion. Inferior Vena Cava Normal inferior vena cava with >50% collapse upon inspiration consistent with normal right atrial pressure, 5 mmHg. Aorta The aortic root size at the sinus of Valsalva is normal. Left Ventricular Outflow Tract Name Value Normal LVOT 2D LVOT Diameter 2.04 cm LVOT Doppler LVOT Peak Gradient 3 mmHg LVOT Mean Gradient 2 mmHg LVOT VTI 18.21 cm LVOT VTI/AV VTI Ratio 0.72 LVOT Stroke Volume 59.46 ml LVOT CO 3.07 l/min LVOT CI 1.73 L/min/m2 Pulmonic Valve
== END 2023-09-13 13:00 | disposition home or self-care (01) ==
LOC: ANHCARD 13:02
PROVIDERS: PCP Family Medicine; Visit Provider Family Medicine
DX: I34.0 Nonrheumatic mitral (valve) insufficiency (principal); I51.89 Other ill-defined heart diseases; I51.7 Cardiomegaly; I34.81 Nonrheumatic mitral (valve) annulus calcification
CPT/HCPCS: 93306; C8929

== ENCOUNTER 2024-01-31 17:45 | Outpatient (CLI) | payer MEDICARE, SELFPAY ==
[2024-01-31 18:23] LABS: Aspartate Amino Transferase 32 U/L (14-36); Cholesterol 179 mg/dL (0-200); HDL Direct 68 mg/dL; Triglycerides 140 mg/dL (<150)
[2024-01-31 18:35] LABS: LDL Cholesterol Direct 87 mg/dL
== END 2024-01-31 17:46 | disposition home or self-care (01) ==
PROVIDERS: PCP Family Medicine; Visit Provider Internal Medicine Cardiovascular Disease
DX: E78.5 Hyperlipidemia, unspecified (principal); Z79.899 Other long term (current) drug therapy
CPT/HCPCS: 36415; 80061; 84450

== ENCOUNTER 2024-09-01 14:30 | Outpatient (CLI) | payer MEDICARE, SELFPAY ==
--- NOTE | ~2024-09-01 | MM_ITS ---
EXAMINATION: MM screening ginna BI w trevor HISTORY: Screening TECHNIQUE: Craniocaudal and mediolateral oblique 3-D tomosynthesis images were obtained and synthetic 2-D images were generated. CAD analysis was submitted and interpreted. COMPARISON: Comparison to multiple prior studies sequentially, with oldest reviewed study dated 08/03. BREAST PARENCHYMAL COMPOSITION: Dense: The breasts are heterogeneously dense, which may obscure small masses FINDINGS: There is no evidence of suspicious mass, calcification, or architectural distortion to sugg est malignancy in either breast. There has been no suspicious interval change. IMPRESSION: 1. No mammographic evidence of malignancy. 2. Recommend routine screening mammography in one year. BI-RADS Category 1: Negative Reviewed, dictated and finalized at location B.
--- OUTSIDE RECORDS SUMMARY | 2024-09-01 15:38 | XMS_ITS | Clinical Summary ---
Author Organization [facility] Address [address] [place] [address] Care Team Providers Care Sports Management Internship Name Role Phone Tanner Maier MD Primary Care Provider [phone] Source Comments [facility],non-owned Affiliates and Associated Physician Practices is amultiple site organization consisting of ambulatory clinics and hospital sitesin [place], [place], [place] and [place]. This disclosure is being madepursuant to the Care Everywhere program and may not contain all information available regarding this patient. Last updated 18.[facility] Allergies No known active allergies Medications * Be aware that medications may not be up to date on this document. Alwaysverify current medications with the patient. ALPRAZolam (Xanax) 0.25 MG tablet Take 1 (one) tablet by mouth once daily 04/03/20 23 Active aspirin EC (Ecotrin) 81 MG tablet Take 1 (one) tablet by mouth once daily Active Cholecalciferol (vitamin D3) 1.25 MG (46270 UT) capsule Take 1 (one) capsule by mouth every 7 days 04/19/20 23 Active guaiFENesin-cod eine (Robitussin AC) 100-10 MG/5ML syrup Take 5 mL by mouth every 4 hours as needed for cough 08/14/19 23 Active meloxicam (Mobic) 15 MG tablet Take 1 (one) tablet by mouth once daily as needed 03/13/20 23 Active omeprazole (PriLOSEC) 40 MG capsule Take 1 (one) capsule by mouth once daily 04/19/20 23 Active ondansetron (Zofran) 4 MG tablet Take 1 (one) tablet by mouth every 6 hours as needed 11/28/19 22 Active triamcinolone acetonide (Kenalog) 0.1 % cream Apply to affected area 4 times daily 05/31/19 23 Active estradiol (Estrace) 0.1 MG/GM vaginal cream Insert into the vagina once daily as needed Active denosumab (Prolia) 60 MG/ML SC injection Inject 1 mL subcutaneously Every 180 days Active hydrocortisone- pramoxine (Analpram HC 2.5%) 2.5-1 % cream Insert into the rectum 3 times daily as needed for Hemorrhoids Active hydrocortisone (Anusol-HC) 25 MG suppository Insert 1 (one) suppository into the rectum 2 times daily Active imipramine (Tofranil) 50 MG tablet Take 1 (one) tablet by mouth 2 times daily Active melatonin 5 MG capsule Take 1 (one) capsule by mouth at bedtime Active amLODIPine (Norvasc) 10 MG tablet Take 1 (one) tablet by mouth once daily Active chlorthalidone (Hygroton) 25 MG tablet Take 1 (one) tablet by mouth once daily Active clopidogrel (plaVIX) 75 MG tablet Take 1 (one) tablet by mouth once daily Active Insulin Glargine, 2 Unit Dial, (Toujeo Max SoloStar) pen Inject 50 (fifty) Units subcutaneously 2 times daily Active insulin lispro (HumaLOG;ADMelo g) 100 UNIT/ML pen Inject 100 (one hundred) Units subcutaneously 2 times daily, before breakfast and supper Active loratadine (Claritin) 10 MG tablet Take 1 (one) tablet by mouth once daily Active losartan (Cozaar) 50 MG tablet Take 1 (one) tablet by mouth once daily Active Magnesium 400 MG Take 1 tablet by mouth once daily Active metoprolol tartrate IR (Lopressor) 25 MG tablet Take 1 (one) tablet by mouth 2 times daily Active pantoprazole EC (Protonix) 40 MG tablet Take 1 (one) tablet by mouth once daily Active potassium chloride (Klor-Con) 20 MEQ packet Take 1 (one) packet by mouth once daily Active rosuvastatin (Crestor) 10 MG tablet Take 1 (one) Half Tablet by mouth once daily Active Semaglutide(0.2 5 or 0.5MG/DOS) 2 MG/1.5ML Solution Pen-injector (Ozempic) Inject 0.25 (one-quarter) mg subcutaneously every 7 days Active mirabegron ER 24hr (Myrbetriq) 50 MG tablet Take 1 (one) tablet by mouth once daily 30 tablet 11 05/29/19 24 Active Active Problems Problem Noted Date Diagnosed Date H/O mitral valve repair 09/11/2021 05/12/20 23 Chest pain 08/10/2020 05/12/2023 Memory loss 12/05/2018 05/12/2023 Nightmares 12/05/2018 05/12/2023 Hyperlipidemia 01/23/2017 05/12/2023 Dyspnea on exertion 08/11/2015 05/12/2023 Apoplexy, 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 (AF LURIA, FLUZONE TRIVALENT; 6MO+) (IIV3) 03/13/2010 Family History Medical History Relation Name Comments Cancer - Ovarian Cousin CAD (Coronary Artery Disease) Father Diabetes - Type 2 Father Heart Failure Father Cancer - Breast Maternal Aunt Cancer - Breast Maternal Grandmother CVA Mother Depression Mother Hypertension Mother Osteoporosis Mother Cancer - Renal Paternal Grandfather Depression Sister Hypertension Sister Relation Name Status Comments Cousin Alive Father Maternal Aunt Alive Maternal Grandmother Mother Paternal Grandfather Sister Social History Tobacco Use Types Packs/Day Years Used Date Smoking Tobacco: Former Cigarettes Q uit: 1973 Passive Smoke Exposure: Never Smokeless Tobacco: Never Tobacco Cessation:Counseling Given: Not Answered Alcohol Use Standard Drinks/Week Comments Yes 1 (1 standard drink = 0.6 oz pur e alcohol) Comments No Sex and Gender Information Value Date Recorded Sex Assigned at Not on file Legal 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 Gender Identity Not on file Sexual Orientation Not on file Last Filed Vital Signs Vital Sign Reading Time Taken Comments Blood Pressure 104/68 05/29/2023 1:32 PM MOTOR VEHICLE TECHNICIAN Pulse - - Temperature 36.2 C (97.2 F) 05/29/2023 1:32 PM MOTOR VEHICLE TECHNICIAN Respiratory Rate - - Oxygen Saturation - - Inhaled Oxygen Concentration - - Weight 68.2 kg (150 lb 6.4 oz) 05/29/2023 1:32 P M MOTOR VEHICLE TECHNICIAN Height 165.1 cm (5' 5 ) 05/29/2023 1:32 PM MOTOR VEHICLE TECHNICIAN Body Mass Index 25.03 05/29/2023 1:32 PM MOTOR VEHICLE TECHNICIAN Plan of Treatment Health Maintenance Due Date Last Done Comments BONE DENSITY TESTING 1950 COLOGUARD (AGES 45-75) - COLON CA SCREENING 1950 COLON MONITORING 1950 COLONOSCOPY - COLON CA SCREENING 1950 [address] COLONOGRAPHY - COLON CA SCREENING 1950 Colorectal Cancer Screening 1950 FIT - COLON CA SCREENING 1950 FLEX SIG - COLON CA SCREENING 1950 HEPATITIS C SCREENING 06/05/1969 DTAP/TDAP/TD VACCINES (1 - Tdap) 1970 PNEUMOCOCCAL VACCINE 50+ (1 of 1 - PCV) 2001 ZOSTER VACCINE (1 of 2) 2001 MAMMOGRAM 10/31/2014 10/31/2012, 10/27/2012 COVID-19 VACCINE ( season) 2024 02/22/2022, 08/25/2021, 03/17/2021, Additional history exists DEPRESSION SCREENING 05/20/2024 MEDICARE AWV CALENDAR YEAR 2024 INFLUENZA VACCINE (Season Ended) 2025 02/22/2023, 03/13/2010 Respiratory Syncytial Virus (RSV) Vaccine Pt: or over 60 yrs (1 - 1-dose 75+ series) 2026 HEPATITIS B VACCINE Aged Out No longe r eligible based on patient's age to complete this topic HIB VACCINE Aged Out No longer eligi ble based on patient's age to complete this topic HPV VACCINE Aged Out No longer eligi ble based on patient's age to complete this topic MENINGOCOCCAL (Group B) VACCINE SHARED DECISION-MAKING Aged Out No longer eligible based on patient's age to complete this topic MENINGOCOCCAL GROUPS A/C/Y/W VACCINE Aged Out No longer eligible based on patient's age to complete this topic Insurance [facility] Address: [address] [place] [address] [facility] [employer]ET[employer] MEDICARE ADV Care Teams Sports Management Internship Relationship Specialty Start Date End Date Tanner Maier MD [address] [place] [id number] PCP - General 02/27/10
--- OUTSIDE RECORDS SUMMARY | 2024-09-01 15:38 | XMS_ITS | Encounter Summary ---
Author Organization [facility] Address [address] [place] [address] Phone Care Team Providers Care Petrology Teacher Name Role Phone Tanner Maier MD Primary Care Provider [phone] Encounter Details Date Type Department Care Team (Latest Contact Info) Description 09/13/2023 Orders Only [facility] Scanning, Provider Social History Tobacco Use Types Packs/Day Years Used Date Smoking Tobacco: Former Smokeless Tobacco: Never Comments Unknown Sex and Gender Information Value Date Recorded Sex Assigned at Not on file 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 Gender Identity Not on file Sexual Orientation Not on file documented as of this encounter Plan of Treatment Not on file documented as of this encounter Procedures Procedure Name Priority Date/Time Associated Diagnosis Comments CARDIOLOGY DOCUMENT SCAN 09/13/2023 documented in this encounter Results * Cardiology Document Scan (09/13/2023) Anatomical Region Laterality Modality Other us Provider Scanning CV CARDIAC SERVICES PROCEDURES Final Result documented in this encounter Visit Diagnoses Not on filedocumented in this encounter Care Teams Petrology Teacher Relationship Specialty Start Date End Date Tanner Maier MD PCP - General 11/19/16 documented as of this encounter
--- OUTSIDE RECORDS SUMMARY | 2024-09-01 15:38 | XMS_ITS | Encounter Summary ---
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 Very good documented in this encounter Plan of Treatment Not on file documented as of this encounter Procedures Procedure Name Priority Date/Time Associated Diagnosis Comments SCAN - LABS 06/06/2018 documented in this encounter Results * SCAN - LABS (06/06/2018) us Provider Scanning Final Result documented in this encounter Visit Diagnoses Not on filedocumented in this encounter Care Teams Jewelry Store Manager Relationship Specialty Start Date End Date Tanner Maier MD PCP - General 11/19/16 documented as of this encounter
--- OUTSIDE RECORDS SUMMARY | 2024-09-01 15:38 | XMS_ITS | Clinical Summary ---
Author Organization [facility] Address [address] [place] [address] Phone Care Team Providers Care Rn Referral Name Role Phone Tanner Maier MD Primary Care Provider [phone] Allergies No known active allergies Medications aspirin 81 mg enteric coated tablet TAKE 1 TABLET DAILY Active senna-docusate (PERICOLACE) 8.6-50 mg TAKE 2 TABLETS TWICE DAILY NEEDED. Active acetaminophen (TYLENOL) 325 mg tablet TAKE 2 TABLET EVERY 6 HOURS PRN pain Active docusate sodium (COLACE) 100 mg capsule TAKE 1 CAPSULE TWICE DAILY NEEDED. Active imipramine (TOFRANIL) 10 mg tablet daily 3 08/27/2018 Active ALPRAZolam (XANAX) 0.25 mg tablet 3 (three) times a day as needed 1 10/01/2018 Active estrogens, conjugated, (PREMARIN) 0.3 mg tablet Take 1 tablet (0.3 mg total) by mouth daily Take daily for 21 days then do not take for 7 days. Active MELATONIN ORAL Take by mouth A ctive metroNIDAZOLE (METROCREAM) 0.75 % creamIndication s:Acne Rosacea Apply to face twice daily 45 g 3 04/07/2019 Active clobetasol (TEMOVATE) 0.05 % external solutionIndicat ions:Dermatosis of the Scalp Apply to scalp and rash behind ears bid x 2 weeks 50 mL 3 04/07/2019 Active omeprazole (PriLOSEC) 40 mg capsule Take 1 capsule (40 mg total) by mouth daily Active estradioL (ESTRACE) 0.01 % (0.1 mg/gram) vaginal cream as needed Active nitroglycerin (NITROSTAT) 0.4 mg SL tablet May repeat dose every 5 minutes for up to 3 doses total. 25 tablet 3 08/10/2020 Active cholecalciferol (VITAMIN D-3) 50,000 unit capsule Take 1 capsule (50,000 Units total) by mouth once a week 07/06/2021 Active traZODone (DESYREL) 50 mg tablet TAKE 1 TABLET BY MOUTH ONCE DAILY AT BEDTIME NEEDED FOR INSOMNIA 01/21/2022 Active ondansetron (ZOFRAN) 4 mg tablet Take 1 tablet (4 mg total) by mouth every 6 (six) hours as needed 11/27/2021 Active denosumab (PROLIA SUBQ) 60 mg 10/29/2022 Activ e fluvastatin (LESCOL) 20 mg capsule Take 1 capsule (20 mg total) by mouth nightly 30 capsule 11 10/21/2023 10/21/19 25 Active budesonide-form oteroL (SYMBICORT) 160-4.5 mcg/actuation inhaler Inhale 2 puffs 2 (two) times a day Rinse mouth with water after use. Do not swallow. 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 Surgical follow-up care 09/01/2014 Mitral valve insufficiency 12/14/2013 Mitral valve disease 04/14/2013 Encounters Date Type Department Care Team Description 06/04/2024 1:30 PM SLITTER AND REWINDER MACHINE OPERATOR Office Visit [facility] Pulmonary [address] [facility] Office Building [address] [place] [address] Hunter Cruz MD Dyspnea on exertion (Primary Dx); Mild intermittent asthma, unspecified whether complicated 06/04/2024 12:51 PM SLITTER AND REWINDER MACHINE OPERATOR - 06/04/2024 11:59 PM SLITTER AND REWINDER MACHINE OPERATOR Hospital Encounter [facility] PFT Lab [address] Medical Office Building [address] [place] [address] Dyspnea on exertion Discharge Disposition: Discharge to home or self care from Last 3 Months Surgical History Surgery Date Site/Laterality Comments MITRAL VALVE REPAIR Medical History Medical History Date Comments Vitamin D deficiency Family History Medical History Relation Name Comments Heart failure Father Family history of congestive heart failure - (Added by TW Conv)/Family history of congestive heart failure - (Added by TW Conv) Prostate cancer Father Alzheimer's disease Mother Breast cancer Mother Depression Mother cerebral amyloid angiopathy Mother lewy body dementia Mother Relation Name Status Comments Father Mother Social History Tobacco Use Types Packs/Day Years Used Date Smoking Tobacco: Former Smokeless Tobacco: Never AUDIT-C Answer Date Recorded Q1: How often do you have a drink containing alc ohol? Monthly or less 06/04/2024 Average Number of Drinks Not on file 025 Frequency of Binge Drinking Not on file 05/20 Comments Unknown Sex and Gender Information Value Date Recorded Sex Assigned at Not on file Legal Sex Female 1:02 AM SLITTER AND REWINDER MACHINE OPERATOR Gender Identity Not on file Sexual Orientation Not on file Obstetrics History Last Filed Vital Signs Vital Sign Reading Time Taken Comments Blood Pressure 133/84 06/04/2024 2:10 PM SLITTER AND REWINDER MACHINE OPERATOR Pulse 90 06/04/2024 2:10 PM SLITTER AND REWINDER MACHINE OPERATOR Temperature 36.9 C (98.4 F) 06/04/2024 2:10 PM SLITTER AND REWINDER MACHINE OPERATOR Respiratory Rate 18 06/04/2024 2:10 PM SLITTER AND REWINDER MACHINE OPERATOR Oxygen Saturation 98% 06/04/2024 2:10 PM SLITTER AND REWINDER MACHINE OPERATOR Inhaled Oxygen Concentration - - Weight 69.9 kg (154 lb) 06/04/2024 2:10 PM SLITTER AND REWINDER MACHINE OPERATOR Height 162.6 cm (5' 4 ) 06/04/2024 2:10 PM SLITTER AND REWINDER MACHINE OPERATOR Body Mass Index 26.43 06/04/2024 2:10 PM SLITTER AND REWINDER MACHINE OPERATOR Plan of Treatment Health Maintenance Due Date Last Done Comments Colon Cancer Screening-Colonoscopy 1950 Depression Screening 1950 Fall Risk Assessment 1950 Hepatitis C Screening 1950 Osteoporosis Screening-Bone Density Scan 1950 DTaP/Tdap/Td Vaccine (1 - Tdap) 1962 Hepatitis B Screening 1969 Pneumococcal vaccine 65+ (1 of 2 - PCV) 1970 Breast Cancer Screening-Mammogram 10/31/2013 013, 10/27/2012 Well Visit 65+ 2016 Influenza Vaccine (#1) 2024 03/13/2010 Zoster Vaccine Completed 10/31/2017, 08/23/2017 Procedures Procedure Name Priority Date/Time Associated Diagnosis Comments PULMONARY FUNCTION TEST (PFT) Routine 06/04/2024 2:11 PM SLITTER AND REWINDER MACHINE OPERATOR Dyspnea on exertion SCREENING MAMMOGRAM W REBEL Routine 10/31/2012 10:24 AM CDT from Last 3 Months or Most Recently Relevant to Health Maintenance Results * Pulmonary Function Test - (06/04/2024 2:11 PM SLITTER AND REWINDER MACHINE OPERATOR) FVC PRE 3.36 L [facility] FVC %PRE PRED 125 % [facility] FVC POST 3.56 L [facility] FVC %POST PRED 132 % [facility] FEV1 PRE 2.05 L [facility] FEV1 %PRE PRED 98 % [facility] FEV1 POST 2.14 L [facility] FEV1 %POST PRED 102 % [facility] FEV1/FVC PRE 61.0 % [facility] FEV1/FVC POST 59.9 % [facility] FRC PL PRE 5.66 L [facility] FRC PL %PRE PRED 195 % [facility] RV PRE 4.94 L [facility] RV %PRE PRED 219 % [facility] TLC PRE 8.33 L [facility] TLC %PRE PRED 164 % [facility] DLCO PRE 20.8 ml/min/mmH g [facility] DLCO %PRE PRED 110 % [facility] FIO2 % 21.00 % [facility] PaO2 81.0 mmHg [facility] PaCO2 39.0 mmHg [facility] pH 7.45 [facility] A-aDO2 POC 20.0 mmHg [facility] METHGB % 0.6 % [facility] COHb POC 1.9 % [facility] HCO3 27.1 mEq/L [facility] Anatomical Region Laterality Modality PFT 06/04/2024 12:5 1 PM SLITTER AND REWINDER MACHINE OPERATOR Narrative 06/08/2024 12:26 AM SLITTER AND REWINDER MACHINE OPERATOR Table formatting from the original result was not included. [facility] Division of Pulmonary & Critical Care Medicine [address] [place] [address]; [address]; [place] [address]; [phone] Pulmonary Function Laboratory Pulmonary Stress Test Simple/Oxygen Assessment Patient: Stephanie Arrieta Date: 06/04/2024 : 1950 Ht: 64 IN Wt: 154 LBS Time (min) Distance (ft)/ Olsen O2 L/M SpO2 HR Shashank* BP FEV1 % Pred Rest: RA 98 75 0 91/70 2.05 98 % Walk/Bike: 1 RA 94 104 0 2 RA 96 103 1 3 RA 95 108 3 4 RA 97 106 3 5 RA 100 110 3 6 min 0 sec RA 98 112 4 Recovery: 1 RA 100 100 2 117/77 1.86 89% 3 RA 97 96 0 *Shashank rate of perceived exertion (1-10 dyspnea scale) Micheal, CHEST 2003; 123:1408 Walk Test Summary: Six Minute Walk Distance: 1800 ft Six-minute Walk Work [distance (m) x body wt (kg)]: 96955 kg.m (normal >60,000kg.m) Oxygen required to maintain SpO2 greater than 90% during six minutes of walkin L/M Comments: Interpretation: Breathing room air, SpO2 is normal at rest and during exercise sufficient to increase pulse, SpO2 is stable. On this basis, SpO2 is adequate at rest breathing room air and while walking breathing room air. This level of exercise is associated with no significant change of FEV1. By signing this report, the attending pulmonary physician certifies that he/she has personally reviewed and interpreted the graphic and numerical data associated with this pulmonary function study and has reviewed and /or edited a preliminary draft report and agrees with the written final report. PFT performed at:->[facility] Adult PFT Lab- [facility] Procedure:->Oxygen Assessment Titration Procedure:->Spirometry Procedure:->Spirometry with Bronchodilator Procedure:->Lung Volumes Procedure:->ABG with Co-oximetry Procedure:->DLCO Lung Volumes via:->Pleth with Airway Resistance DLCO:->Spirometry Air Type:->Room Air Pulmonary Function Test Interpretation SPIROMETRY: There is a decrease in expiratory airflow at middle lung volumes. The FEV1 to FVC ratio is reduced. There is no significant improvement after inhaling a single dose of albuterol. The inspiratory loop is normal. LUNG VOLUMES: TLC measured by plethysmography is increased. The increased RV suggests air trapping. DLCO: The diffusing capacity corrected for hemoglobin level (DLCO ADJ) is within normal limits. ARTERIAL BLOOD GAS: There is an uncompensated metabolic alkalosis. The arterial pO2 is normal at rest. The COHb level is 1.9%. Normal is less than 2%. Measured hemoglobin is 13.1 g/dL. PULSE OXIMETRY: See Oxygen Assessment/Cardiopulmonary Exercise Study-Simple Impression: There is a minimal obstructive defect. There is air trapping and hyperinflation. There is no impairment of alveolar gas exchange by DLCO. There is no impairment of gas exchange at rest by ABG. The COHb level is consistent with current non-smoking status. Compared with most recent study, there has been no significant interval change. The attending pulmonary physician certifies a physician presence in the [facility] Suite during the administration of aerosolized bronchodilator. The attending pulmonary physician certifies that he/she has reviewed and interpreted the graphic and numerical data of this pulmonary function study and agrees with the written final report. The lower limit of normal for PaO2 and %HbO2 is age dependent. However, the [facility] Pulmonary Function Laboratory defines hypoxemia as a PaO2 <56 mm Hg or a %HbO2 <89%. Starting on May of 2024 the [facility] Pulmonary Function Laboratory utilizes race neutral GLI Global normative equations. Hunter Cruz MD PFT ORDERABLES Final Result * Screening Mammogram W Rebel (10/31/2012 10:24 AM CDT) Anatomical Region Laterality Modality Breast N/A Mammography 10/31/2012 10:2 4 AM CDT Narrative 10/31/2012 11:07 AM CDT PATEL RUSSELL M.D. MANOHAR PAN M.D. FINAL REPORT The radiology attending physician has personally reviewed this study, and has reviewed and/or edited this written report and agrees with it. ACC# Date Time Exam [id number] Oct 31, 2012 10:24:00 [facility] [id number] Diag Mammogram Unilateral R Technologist(s): Collette Pradhan; ; [id number] Oct 31, 2012 10:24:00 [facility] [id number] Unilateral Tomosynthesis R Technologist(s): Collette Pradhan; ; [id number] Oct 31, 2012 10:46:00 [facility] [id number] Sono Breast (Unilateral) R EXAMINATION: RIGHT UNILATERAL FULL FIELD DIGITAL DIAGNOSTIC MAMMOGRAM, DIGITAL RIGHT BREAST TOMOSYNTHESIS, AND RIGHT BREAST SONOGRAM HISTORY: 62 year-old woman with an abnormal screening mammogram. Recent screening mammogram performed at [facility] on 10/27/2012 demonstrated a possible area of architectural distortion in the upper outer quadrant of the right breast. MAMMOGRAM TECHNIQUE: Spot compression magnification craniocaudal and mediolateral oblique views of the right breast were obtained utilizing full field digital mammography. Digital right breast tomosynthesis was also performed and reviewed as a part of this examination. COMPARISON: Comparison is made with prior right mammograms dated 10/27/2012, 10/29/2011 and 11/02/2010. BREAST PARENCHYMAL COMPOSITION: Heterogeneously dense, which could obscure detection of small masses. MAMMOGRAM FINDINGS: No suspicious mass or architectural distortion is confirmed in the area of concern on recent screening mammogram. SONOGRAM FINDINGS: Directed sonogram of the entire outer right breast breast was performed. No focal abnormal solid or cystic lesion is identified in the vicinity of the finding of concern on recent screening mammogram. Directed physical examination of the entire outer right breast demonstrates no suspicious palpable abnormality at this time. IMPRESSION: 1) No suspicious abnormality is confirmed in the area of concern on recent screening mammogram. 2) Annual screening mammography is recommended. OVERALL FINAL ASSESSMENT: BI-RADS Category 1: Negative. Requested By: Tanner Maier M.D. Dictated By: MANOHAR PAN M.D. on Oct 31 2012 11:04A This document has been electronically signed by: PATEL RUSSELL M.D. on Oct 31 2012 11:07A Procedure Note Provider, MD [facility] - 09/05/2016 PATEL RUSSELL M.D. MANOHAR PAN M.D. FINAL REPORT The radiology attending physician has personally reviewed this study, and has reviewed and/or edited this written report and agrees with it. ACC# Date Time Exam [id number] Oct 31, 2012 10:24:00 [facility] [id number] Diag Mammogram Unilateral R Technologist(s): Collette Pradhan; ; [id number] Oct 31, 2012 10:24:00 [facility] [id number] Unilateral Tomosynthesis R Technologist(s): Collette Pradhan; ; [id number] Oct 31, 2012 10:46:00 [facility] [id number] Sono Breast (Unilateral) R EXAMINATION: RIGHT UNILATERAL FULL FIELD DIGITAL DIAGNOSTIC MAMMOGRAM, DIGITAL RIGHT BREAST TOMOSYNTHESIS, AND RIGHT BREAST SONOGRAM HISTORY: 62 year-old woman with an abnormal screening mammogram. Recent screening mammogram performed at [facility] on 10/27/2012 demonstrated a possible area of architectural distortion in the upper outer quadrant of the right breast. MAMMOGRAM TECHNIQUE: Spot compression magnification craniocaudal and mediolateral oblique views of the right breast were obtained utilizing full field digital mammography. Digital right breast tomosynthesis was also performed and reviewed as a part of this examination. COMPARISON: Comparison is made with prior right mammograms dated 10/27/2012, 10/29/2011 and 11/02/2010. BREAST PARENCHYMAL COMPOSITION: Heterogeneously dense, which could obscure detection of small masses. MAMMOGRAM FINDINGS: No suspicious mass or architectural distortion is confirmed in the area of concern on recent screening mammogram. SONOGRAM FINDINGS: Directed sonogram of the entire outer right breast breast was performed. No focal abnormal solid or cystic lesion is identified in the vicinity of the finding of concern on recent screening mammogram. Directed physical examination of the entire outer right breast demonstrates no suspicious palpable abnormality at this time. IMPRESSION: 1) No suspicious abnormality is confirmed in the area of concern on recent screening mammogram. 2) Annual screening mammography is recommended. OVERALL FINAL ASSESSMENT: BI-RADS Category 1: Negative. Requested By: Tanner Maier M.D. Dictated By: MANOHAR PAN M.D. on Oct 31 2012 11:04A This document has been electronically signed by: PATEL RUSSELL M.D. on Oct 31 2012 11:07A Historical Provider MD [facility]AMMO PROCEDURES Avis l Result from Last 3 Months or Most Recently Relevant to Health Maintenance Insurance [facility] MEDICARE [employer] [facility] MEDICARE [employer] MEDICARE Care Teams Rn Referral Relationship Specialty Start Date End Date Tanner Maier MD PCP - General 11/19/16
--- OUTSIDE RECORDS SUMMARY | 2024-09-01 15:38 | XMS_ITS | Referral Summary ---
Author Organization [facility] Address [address] [place] [address] Phone Care Team Providers Care Sampler And Test Preparer Name Role Phone Tanner Maier MD Primary Care Provider [phone] Encounters Date Type Department Care Team Description 06/04/2024 1:30 PM SENIOR REPORT DEVELOPER Office Visit [facility] Pulmonary [address] [facility] Medical Office Building [address] [place] [address] Hunter Cruz MD Dyspnea on exertion (Primary Dx); Mild intermittent asthma, unspecified whether complicated 06/04/2024 12:51 PM SENIOR REPORT DEVELOPER - 06/04/2024 11:59 PM SENIOR REPORT DEVELOPER Hospital Encounter [facility] PFT Lab [address] [facility] Office Building [address] [place] [address] Dyspnea on exertion Discharge Disposition: Discharge to home or self care from Last 3 Months Allergies No known active allergies Medications aspirin [...] valve insufficiency 12/14/2013 Mitral valve disease 04/14/2013 Social History Tobacco Use Types Packs/Day Years [...] on file Legal Sex Female 1:02 AM SENIOR REPORT DEVELOPER Gender Identity Not on file Sexual Orientation Not on file Last Filed Vital Signs Vital Sign Reading Time Taken Comments Blood Pressure 133/84 06/04/2024 2:10 PM SENIOR REPORT DEVELOPER Pulse 90 06/04/2024 2:10 PM SENIOR REPORT DEVELOPER Temperature 36.9 C (98.4 F) 06/04/2024 2:10 PM SENIOR REPORT DEVELOPER Respiratory Rate 18 06/04/2024 2:10 PM SENIOR REPORT DEVELOPER Oxygen Saturation 98% 06/04/2024 2:10 PM SENIOR REPORT DEVELOPER Inhaled Oxygen Concentration - - Weight 69.9 kg (154 lb) 06/04/2024 2:10 PM SENIOR REPORT DEVELOPER Height 162.6 cm (5' 4 ) 06/04/2024 2:10 PM SENIOR REPORT DEVELOPER Body Mass Index 26.43 06/04/2024 2:10 PM SENIOR REPORT DEVELOPER Plan of Treatment Not on file Procedures Procedure Name Priority Date/Time Associated Diagnosis Comments PULMONARY FUNCTION TEST (PFT) Routine 06/04/2024 2:11 PM SENIOR REPORT DEVELOPER Dyspnea on exertion SCREENING MAMMOGRAM W REBEL Routine 10/31/2012 10:24 AM CDT from Last 3 Months or Most Recently Relevant to Health Maintenance Results * Pulmonary Function Test - (06/04/2024 2:11 PM SENIOR REPORT DEVELOPER) FVC PRE 3.36 L [facility] FVC %PRE PRED 125 % [facility] FVC POST 3.56 L [facility] FVC %POST PRED 132 % [facility] FEV1 PRE 2.05 L [facility] FEV1 %PRE PRED 98 % [facility] FEV1 POST 2.14 L [facility] FEV1 %POST PRED 102 % [facility] FEV1/FVC PRE 61.0 % [facility] FEV1/FVC POST 59.9 % [facility] FRC PL PRE 5.66 L [facility] FRC PL %PRE PRED 195 % [facility] RV PRE 4.94 L [facility] RV %PRE PRED 219 % [facility] TLC PRE 8.33 L [facility] TLC %PRE PRED 164 % [facility] DLCO PRE 20.8 ml/min/mmH g [facility] DLCO %PRE PRED 110 % [facility] FIO2 % 21.00 % [facility] PaO2 81.0 mmHg [facility] PaCO2 39.0 mmHg [facility] pH 7.45 [facility] A-aDO2 POC 20.0 mmHg [facility] METHGB % 0.6 % [facility] COHb POC 1.9 % [facility] HCO3 27.1 mEq/L [facility] Anatomical Region Laterality Modality PFT 06/04/2024 12:5 1 PM SENIOR REPORT DEVELOPER Narrative 06/08/2024 12:26 AM SENIOR REPORT DEVELOPER Table formatting from the original result was not included. [facility] Division of Pulmonary & Critical Care Medicine [address] [place] [address]; [place] [address]; [place] [address]; [phone] Pulmonary Function Laboratory Pulmonary Stress Test Simple/Oxygen [...] Work [distance (m) x body wt (kg)]: 02632 kg.m (normal >60,000kg.m) Oxygen required to maintain [...] with the written final report. PFT performed at:->[facility] Adult PFT Lab- [facility] Procedure:->Oxygen Assessment Titration Procedure:->Spirometry Procedure:->Spirometry with Bronchodilator [...] and %HbO2 is age dependent. However, the [facility] Pulmonary Function Laboratory defines hypoxemia as a PaO2 <56 mm Hg or a %HbO2 <89%. Starting on May of [address] [facility] Pulmonary Function Laboratory utilizes race neutral GLI Global normative equations. us Hunter Cruz MD PFT ORDERABLES Final Result [...] agrees with it. ACC# Date Time Exam [id number] Oct 31, 2012 10:24:00 [facility] [id number] Diag Mammogram Unilateral R Technologist(s): Collette Pradhan; ; [id number] Oct 31, 2012 10:24:00 [facility] [id number] Unilateral Tomosynthesis R Technologist(s): Collette Pradhan; ; [id number] Oct 31, 2012 10:46:00 [facility] [id number] Sono Breast (Unilateral) R EXAMINATION: RIGHT UNILATERAL FULL FIELD DIGITAL DIAGNOSTIC MAMMOGRAM, DIGITAL RIGHT BREAST TOMOSYNTHESIS, AND RIGHT BREAST SONOGRAM HISTORY: 62 year-old woman with an abnormal screening mammogram. Recent screening mammogram performed at [facility] on 10/27/2012 demonstrated a possible area of [...] agrees with it. ACC# Date Time Exam [id number] Oct 31, 2012 10:24:00 [facility] [id number] Diag Mammogram Unilateral R Technologist(s): Collette Pradhan; ; [id number] Oct 31, 2012 10:24:00 [facility] [id number] Unilateral Tomosynthesis R Technologist(s): Collette Pradhan; ; [id number] Oct 31, 2012 10:46:00 [facility] [id number] Sono Breast (Unilateral) R EXAMINATION: RIGHT UNILATERAL FULL FIELD DIGITAL DIAGNOSTIC MAMMOGRAM, DIGITAL RIGHT BREAST TOMOSYNTHESIS, AND RIGHT BREAST SONOGRAM HISTORY: 62 year-old woman with an abnormal screening mammogram. Recent screening mammogram performed at [facility] on 10/27/2012 demonstrated a possible area of [...] Most Recently Relevant to Health Maintenance Insurance [employer]ARE [employer] [facility] MEDICARE [facility] MEDICARE Care Teams Sampler And Test Preparer Relationship Specialty Start Date End Date Tanner Maier MD PCP - General 11/19/16
== END 2024-09-01 14:31 | disposition home or self-care (01) ==
PROVIDERS: PCP Family Medicine; Visit Provider Nurse Practitioner Family
DX: Z12.31 Encounter for screening mammogram for malignant neoplasm of breast (principal)
CPT/HCPCS: 77063; 77067

== ENCOUNTER 2024-09-16 16:41 | Outpatient (CLI) | payer MEDICARE, SELFPAY ==
--- OUTSIDE RECORDS SUMMARY | 2024-09-16 16:45 | XMS_ITS | Clinical Summary ---
Author Organization [facility] [employer] Address [address] [place] [address] Care Team Providers Care Police Inspector Name Role Phone Tanner Maier MD Primary Care Provider [phone]- [phone] Source Comments [facility] [employer],non-owned Affiliates and Associated Physician Practices is amultiple site organization consisting of ambulatory clinics and hospital sitesin [place], [place], [place] and [place]. This disclosure is being madepursuant to the Care Everywhere program and may not contain all information available regarding this patient. Last updated 18.[facility] [employer] Allergies No known active allergies Medications * Be aware that medications may not be up to date on this document. Alwaysverify current medications with the patient. ALPRAZolam (Xanax) 0.25 MG tablet Take 1 (one) tablet by mouth once daily 04/03/20 23 Active aspirin EC (Ecotrin) 81 MG tablet Take 1 (one) tablet by mouth once daily Active Cholecalciferol (vitamin D3) 1.25 MG (23192 UT) capsule Take 1 (one) capsule by [...] on file Legal Sex Female 6:45 PM HEALTH PROMOTION EDUCATOR Gender Identity Not on file Sexual Orientation Not on file Last Filed Vital Signs Vital Sign Reading Time Taken Comments Blood Pressure 104/68 05/29/2023 1:32 PM HEALTH PROMOTION EDUCATOR Pulse - - Temperature 36.2 C (97.2 F) 05/29/2023 1:32 PM HEALTH PROMOTION EDUCATOR Respiratory Rate - - Oxygen Saturation - - Inhaled Oxygen Concentration - - Weight 68.2 kg (150 lb 6.4 oz) 05/29/2023 1:32 P M HEALTH PROMOTION EDUCATOR Height 165.1 cm (5' 5 ) 05/29/2023 1:32 PM HEALTH PROMOTION EDUCATOR Body Mass Index 25.03 05/29/2023 1:32 PM HEALTH PROMOTION EDUCATOR Plan of Treatment Health Maintenance Due Date [...] age to complete this topic [place] [facility] [place] Address: [address] [place] [address] [facility] AETNA MEDICARE ADV Care Teams Police Inspector Relationship Specialty Start Date End Date Tanner Maier MD [address] [place] [id number] PCP - General 02/27/10
--- OUTSIDE RECORDS SUMMARY | 2024-09-16 16:45 | XMS_ITS | Referral Summary ---
Author Organization [facility] Address [address] [place] [address] Phone Care Team Providers Care Riveter Automobile Brakes Name Role Phone Tanner Maier MD Primary Care Provider [phone] [phone] Allergies No known active allergies Medications aspirin 81 mg enteric coated tablet TAKE 1 TABLET DAILY Active senna-docusate (PERICOLACE) 8.6-50 mg TAKE 2 TABLETS TWICE DAILY NEEDED. Active acetaminophen (TYLENOL) 325 mg tablet TAKE 2 TABLET EVERY 6 HOURS PRN pain Active docusate sodium (COLACE) 100 mg capsule TAKE 1 CAPSULE TWICE DAILY NEEDED. Active imipramine (TOFRANIL) 10 mg tablet daily 3 9 Active ALPRAZolam (XANAX) 0.25 mg tablet 3 (three) times a day as needed 1 9 Active estrogens, conjugated, (PREMARIN) 0.3 mg tablet Take 1 tablet (0.3 mg total) by mouth daily Take daily for 21 days then do not take for 7 days. Active MELATONIN ORAL Take by mouth Active metroNIDAZOLE (METROCREAM) 0.75 % creamIndicatio ns:Acne Rosacea Apply to face twice daily 45 g 3 9 Active clobetasol (TEMOVATE) 0.05 % external solutionIndica tions:Dermatos is of the Scalp Apply to scalp and rash behind ears bid x 2 weeks 50 mL 3 9 Active omeprazole (PriLOSEC) 40 mg capsule Take 1 capsule (40 mg total) by mouth daily Active estradioL (ESTRACE) 0.01 % (0.1 mg/gram) vaginal cream as needed Active nitroglycerin (NITROSTAT) 0.4 mg SL tablet May repeat dose every 5 minutes for up to 3 doses total. 25 tablet 3 1 Active cholecalcifero l (VITAMIN D-3) 50,000 unit capsule Take 1 capsule (50,000 Units total) by mouth once a week 2 Active traZODone (DESYREL) 50 mg tablet TAKE 1 TABLET BY MOUTH ONCE DAILY AT BEDTIME NEEDED FOR INSOMNIA 2 Active ondansetron (ZOFRAN) 4 mg tablet Take 1 tablet (4 mg total) by mouth every 6 (six) hours as needed 2 Active denosumab (PROLIA SUBQ) 60 mg 3 Active budesonide-for moteroL (SYMBICORT) 160-4.5 mcg/actuation inhaler Inhale 2 puffs 2 (two) times a day Rinse mouth with water after use. Do not swallow. 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 Gender Identity Not on file Sexual Orientation Not on file Last Filed Vital Signs Vital Sign Reading Time Taken Comments Blood Pressure 133/84 06/04/2024 2:10 PM SUPERVISOR ENGRAVING Pulse 90 06/04/2024 2:10 PM SUPERVISOR ENGRAVING Temperature 36.9 C (98.4 F) 06/04/2024 2:10 PM SUPERVISOR ENGRAVING Respiratory Rate 18 06/04/2024 2:10 PM SUPERVISOR ENGRAVING Oxygen Saturation 98% 06/04/2024 2:10 PM SUPERVISOR ENGRAVING Inhaled Oxygen Concentration - - Weight 69.9 kg (154 lb) 06/04/2024 2:10 PM SUPERVISOR ENGRAVING Height 162.6 cm (5' 4 ) 06/04/2024 2:10 PM SUPERVISOR ENGRAVING Body Mass Index 26.43 06/04/2024 2:10 PM SUPERVISOR ENGRAVING Plan of Treatment Not on file Procedures Procedure Name Priority Date/Time Associated Diagnosis Comments SCREENING MAMMOGRAM W REBEL Routine 10/31/2012 10:24 AM CDT from Last 3 Months or Most Recently Relevant to Health Maintenance Results * Screening Mammogram W Rebel (10/31/2012 10:24 AM CDT) Anatomical Region Laterality Modality Breast N/A Mammography 10/31/2012 10:2 4 AM CDT Narrative 10/31/2012 11:07 AM CDT PATEL RUSSELL M.D. MANOHAR PAN M.D. FINAL REPORT The radiology attending physician has personally reviewed this study, and has reviewed and/or edited this written report and agrees with it. ACC# Date Time Exam [id number] Oct 31, 2012 10:24:00 [facility] [id number] Diag Mammogram Unilateral R Technologist(s): Collette Pradhan; ; [id number] Oct 31, 2012 10:24:00 [facility] [id number] Unilateral Tomosynthesis R Technologist(s): Collette Pradhan; ; [id number] Oct 31, 2012 10:46:00 [facility] [id number] Sono Breast (Unilateral) R EXAMINATION: RIGHT UNILATERAL FULL FIELD DIGITAL DIAGNOSTIC MAMMOGRAM, DIGITAL RIGHT BREAST TOMOSYNTHESIS, AND RIGHT BREAST SONOGRAM HISTORY: 62 year-old woman with an abnormal screening mammogram. Recent screening mammogram performed at [facility] on 10/27/2012 demonstrated a possible area [...] Procedure Note Provider, MD Makeda - 09/05/2016 Evelyn CHRISTIE M.D. FINAL REPORT The radiology attending physician has personally reviewed this study, and has reviewed and/or edited this written report and agrees with it. ACC# Date Time Exam [id number] Oct 31, 2012 10:24:00 [facility] [id number] Diag Mammogram Unilateral R Technologist(s): Collette Pradhan; ; [id number] Oct 31, 2012 10:24:00 [facility] [id number] Unilateral Tomosynthesis R Technologist(s): Collette Pradhan; ; [id number] Oct 31, 2012 10:46:00 [facility] [id number] Sono Breast (Unilateral) R EXAMINATION: RIGHT UNILATERAL FULL FIELD DIGITAL DIAGNOSTIC MAMMOGRAM, DIGITAL RIGHT BREAST TOMOSYNTHESIS, AND RIGHT BREAST SONOGRAM HISTORY: 62 year-old woman with an abnormal screening mammogram. Recent screening mammogram performed at [facility] on 10/27/2012 demonstrated a possible area [...] Relevant to Health Maintenance Insurance AETNA MEDICARE [email or web address] [facility] MEDICARE [facility] [place] [address] Care Teams Riveter Automobile Brakes Relationship Specialty Start Date End Date Tanner Maier MD PCP - General 11/19/16
--- OUTSIDE RECORDS SUMMARY | 2024-09-16 16:45 | XMS_ITS | Data Portability ---
Author Organization [employer] Address [address] [address] Assessment No assessment recorded. Plan of Treatment Reminders Order Date Submit Date Provider Last Modified By Organization Details Last Modified Time Details Appointments None recorded. Lab None recorded. Referral None recorded. Procedures None recorded. Surgeries None recorded. Imaging XR, shoulder - rm 15 2019 020 [email or web address] Not available 0 12:58:31 US, upper extremity, nonvascular 2019 020 [email or web address] Not available 0 12:58:31 Medication Orders None recorded. Patient TargetsNo targets recorded. Patient InstructionsNo instructions recorded. Reason for Referral None Reported. Problems No Known Problems Procedures Surgical History Date Name Laterality Status Provider Name and Address Organization Details Recorded Time 4 Heart Surgery completed Carlton Robertson [employer] 10/27/2019 12:50:25 Imaging Results None recorded. Procedure Notes None recorded. Medical Equipment None Reported. Allergies No known drug allergies Medications Name Sig Start Date Stop Date Status Note LastModified by Organization Details LastModified Time prazosin 1 mg capsule 10/26 completed Not Available Not Available Not Available metronidazole 0.75 % (37.5 mg/5 gram) vaginal gel 10/26 completed Not Available Not Available Not Available omeprazole 40 mg capsule,delayed release active Not Available Not Available Not Available alprazolam 0.25 mg tablet active Not Available Not Available No t Available sulfacetamide sodium 10 % eye drops 10/26 completed Not Available Not Available Not Available metronidazole 0.75 % topical cream 10/26 completed Not Available Not Available Not Available estradiol 0.01% (0.1 mg/gram) vaginal cream active Not Available Not Availabl e Not Available imipramine 10 mg tablet active Not Available Not Available No t Available betamethasone valerate 0.12 % topical foam 10/26 completed Not Available Not Available Not Available clobetasol 0.05 % scalp solution 10/26 completed Not Available Not Available Not Available tobramycin 0.3 %-dexamethasone 0.1 % eye drops,suspensio n 10/26 completed Not Available Not Available Not Available rosuvastatin 10 mg tablet active Not Available Not Available No t Available GaviLyte-N 420 gram oral solution active Not Available Not Available Not Available Virtussin AC 10 mg-100 mg/5 mL oral liquid 10/26 completed Not Available Not Available Not Available Vitals Date Recorded Body height Body mass index (BMI) Body weight Heart rate Body temperature Systolic blood pressure Diastolic blood pressure Provider Name and Address Organization Details Last Updated DateTime 0 165.1 cm 25 kg/m2 80007.8 6 g 91 /min 97.8 [degF] 145 mm[Hg] 90 mm[Hg] Carlton [facility] [employer] 0 11:56:51 Social History Question Answer Notes LastModified by Organizat ion Details LastModified Time Tobacco Smoking Status Never [facility]oker [facility] 10/27/2019 11:59:22 What Is Your Level Of Alcohol Consumption? Occasional Information not available 10/27/2019 Auto Related Injury? No Information not available 10/27/2019 Which Of Your Hands Is Dominant? Right Information not available 10/27/2019 If Injured, Is Litigation Ongoing? No Information not available 10/27/2019 What Types Of Sporting Activities Do You Participate In? Tennis Information not available 10/27/2019 Work Related Injury? No Information not available 10/27/2019 Sex: Unknown Functional Status Question Answer Note LastModified by Organization D etails LastModified Time What is your exercise level? Moderate Information not available 10/27/2019 Mental Status None recorded. Family History Relationship Description Onset Age of this Age Resolved Age Notes LastModified by Organization Details LastModified Time Mother Substance abuse Not available 2019 12:53:26 Mother Depressive disorder Not available 2019 12:53:49 Mother Hypertensive disorder Not available 2019 12:53:55 Daughter Arthritis Not availabl e 10/27/2019 12:53:32 Father Heart disease Not available 2019 12:53:39 Father Carcinoma of prostate Not available 2019 12:54:09 Medical History Condition Response HIV or AIDS N Coronary Artery Disease N Other Cancer N Gout N Kidney Stones N Hyperthyroidism N Breast Cancer N Head Trauma/Injury N Hernia N Lung Cancer N COPD N Depression N Blood Clots N Lung Disease N Hypothyroidism N Pacemaker N Anxiety Disorder N Arthritis N Kidney Cancer N Cancer N Stroke N Leg or Foot Ulcers N Neck Injury N High Cholesterol Y Liver Disease N Rheumatoid Arthritis N Fibromyalgia N Headaches N Kidney Disease N Heart Problems Y Prostate Cancer N Migraines N Thyroid Problems N Anemia N Multiple Sclerosis N Tendon Tear N Ulcers N Heart Attack (ID) N Diabetes N Bleeding Disorder N Seizures/Epilepsy N Tuberculosis N Urinary Tract Infection N Back Problems N Diverticulitis N Asthma N Lupus N Peripheral Vascular Disease N Sleep Disorder N GERD/Reflux N Hepatitis Y Aneurysm N Thyroid Cancer N Heart Disease Y Pulmonary Embolism N Hypertension N Osteoporosis N Gynecological HistoryNo gynecological history recorded. Obstetrics History GPAL:G 0 P 0 0 0 0 Past Encounters Encounter ID Performer Location Encounter Start Date Encounter Closed Date Diagnosis/Indication Diagnosis SNOMED-CT Code Diagnosis ICD10 Code Diagnosis Note [id number] David Lindsey MD [facility] [address] [facility] [address] [place] [address] 10/27/2019 11:55:13 10/27/2019 12:58:31 Pain of right shoulder joint [id number] 5888859 M25.511 Health Concerns Section Related Observation LastModified by Organization Detai ls LastModified Time None Recorded Concern Status LastModified by Organization Details LastModified Time None Recorded Advance Directives Directive None Recorded Payers Encounter Date Sequence Insurance Name Policy Number Policy Garcia Covered Member ID Garcia Member ID Guarantor Name 10/27/2019 2 [employer] - DOS PRIOR TO 20 - [facility] B[employer]EFITS [facility]AN [id number] Stephanie Treviño [id number] Stephanie Treviño 10/27/2019 1 MEDICARE [place]: [place] Stephanie Walden-Sanket chan [id number] Stephanie Treviño OBGyn Episode No OBEpisode recorded.
--- OUTSIDE RECORDS SUMMARY | 2024-09-16 16:45 | XMS_ITS | Encounter Summary ---
Author Organization [facility] Address [address] [place] [address] Phone Care Team Providers Care Valet Runner Name Role Phone Tanner Maier MD Primary Care Provider [phone] -[phone] Encounter Details Date Type Department Care Team (Latest Contact Info) Description 09/13/2023 Orders Only [facility] Scanning, Provider Social History Tobacco Use Types Packs/Day Years Used Date Smoking Tobacco: Former Smokeless Tobacco: Never Comments Unknown Sex and Gender Information Value Date Recorded Sex Assigned at Not on file Legal Sex Female 1: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
--- OUTSIDE RECORDS SUMMARY | 2024-09-16 16:45 | XMS_ITS | Encounter Summary ---
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
--- OUTSIDE RECORDS SUMMARY | 2024-09-16 16:45 | XMS_ITS | Clinical Summary ---
Author Organization [facility] Address [address] [place] [address] Phone Care Team Providers Care Lumber Buyer Name Role Phone Tanner Maier MD Primary Care Provider +1 [phone] Allergies No known active allergies Medications aspirin [...] valve insufficiency 12/14/2013 Mitral valve disease 04/14/2013 Surgical History Surgery Date Site/Laterality Comments MITRAL [...] on file Legal Sex Female 1:02 AM STOCK SHEETS CLEANER INSPECTOR Gender Identity Not on file Sexual Orientation Not on file Obstetrics History Last Filed Vital Signs Vital Sign Reading Time Taken Comments Blood Pressure 133/84 06/04/2024 2:10 PM STOCK SHEETS CLEANER INSPECTOR Pulse 90 06/04/2024 2:10 PM STOCK SHEETS CLEANER INSPECTOR Temperature 36.9 C (98.4 F) 06/04/2024 2:10 PM STOCK SHEETS CLEANER INSPECTOR Respiratory Rate 18 06/04/2024 2:10 PM STOCK SHEETS CLEANER INSPECTOR Oxygen Saturation 98% 06/04/2024 2:10 PM STOCK SHEETS CLEANER INSPECTOR Inhaled Oxygen Concentration - - Weight 69.9 kg (154 lb) 06/04/2024 2:10 PM STOCK SHEETS CLEANER INSPECTOR Height 162.6 cm (5' 4 ) 06/04/2024 2:10 PM STOCK SHEETS CLEANER INSPECTOR Body Mass Index 26.43 06/04/2024 2:10 PM STOCK SHEETS CLEANER INSPECTOR Plan of Treatment Health Maintenance Due Date Last Done Comments Colon Cancer Screening-Colonoscopy 1951 Depression Screening 1951 Fall Risk Assessment 1950 Hepatitis C Screening 1950 Osteoporosis Screening-Bone Density Scan 1951 DTaP/Tdap/Td Vaccine (1 - Tdap) 1962 Hepatitis B Screening 1969 Pneumococcal vaccine 65+ (1 of 2 - PCV) 1970 Breast Cancer Screening-Mammogram 10/31/2013 013, 10/27/2012 Well Visit 65+ 2016 Influenza Vaccine (Season Ended) 2025 03/13/20 10 Zoster Vaccine Completed 10/31/2017, 08/23/2017 Procedures Procedure [...] agrees with it. ACC# Date Time Exam [id number] Oct 31, 2012 10:24:00 [facility] [id number] Diag Mammogram Unilateral R Technologist(s): Collette Pradhan; ; [id number] Oct 31, 2012 10:24:00 [facility] [id number] Unilateral Tomosynthesis R Technologist(s): Collette Pradhan; ; [id number] Oct 31, 2012 10:46:00 [facility] [id number] Sono Breast (Unilateral) R EXAMINATION: RIGHT UNILATERAL FULL FIELD DIGITAL DIAGNOSTIC MAMMOGRAM, DIGITAL RIGHT BREAST TOMOSYNTHESIS, AND RIGHT BREAST SONOGRAM HISTORY: 62 year-old woman with an abnormal screening mammogram. Recent screening mammogram performed at [facility] on 10/27/2012 demonstrated a possible area [...] agrees with it. ACC# Date Time Exam [id number] Oct 31, 2012 10:24:00 [facility] [id number] Diag Mammogram Unilateral R Technologist(s): Collette Pradhan; ; [id number] Oct 31, 2012 10:24:00 [facility] [id number] Unilateral Tomosynthesis R Technologist(s): Collette Pradhan; ; [id number] Oct 31, 2012 10:46:00 [facility] [id number] Sono Breast (Unilateral) R EXAMINATION: RIGHT UNILATERAL FULL FIELD DIGITAL DIAGNOSTIC MAMMOGRAM, DIGITAL RIGHT BREAST TOMOSYNTHESIS, AND RIGHT BREAST SONOGRAM HISTORY: 62 year-old woman with an abnormal screening mammogram. Recent screening mammogram performed at [facility] on 10/27/2012 demonstrated a possible area [...] Relevant to Health Maintenance Insurance AETNA MEDICARE [facility] MEDICARE [facility] Address: [address] [address] [place] [address] [facility] MEDICARE Care Teams Lumber Buyer Relationship Specialty Start Date End Date Tanner Maier MD PCP - General 11/19/16
[2024-09-16 17:00] LABS: Basophils Percent Auto 0.3 % (0.2-1.2); Eosinophils Absolute Auto 0.1 K/mm3 (0-0.3); Eosinophils Percent Auto 0.9 % (0-4.4); Hematocrit 39.5 % (37.0-47.0); Immature Granulocyte Absolute 0.01 K/mm3 (0.00-0.031); Immature Granulocyte Percent A 0.2 % (0-0.5); Lymphocytes Absolute Auto 1.74 K/mm3 (0.9-3.2); Lymphocytes Percent Auto 30.2 % (18.3-44.2); Mean Corpuscular HGB Conc 32.9 g/dl (32-36); Mean Corpuscular Hemoglobin 31.1 pg (26-34); Mean Corpuscular Volume 94.5 fl (80-100); Mean Platelet Volume 9.8 fl (7.4-10.4); Monocytes Absolute Auto 0.5 K/mm3 (0.1-0.6); Monocytes Percent Auto 8.5 % (2.6-8.5); Neutrophils Absolute Auto 3.5 K/mm3 (1.3-6.7); Neutrophils Percent Auto 59.9 % (45.5-73.1); Platelet Count Result 211 k/mm3 (150-375); Red Blood Count 4.18 M/mm3 (4.2-5.4); Red Cell Distribution Width 13.5 % (11.5-14.5); White Blood Count 5.8 K/mm3 (4.5-10.0)
[2024-09-16 17:38] LABS: Alanine Aminotransferase 21 U/L (6-35); Albumin Level 4.3 g/dL (3.5-5.1); Alkaline Phosphatase 45 U/L (38-126); Anion Gap 6 mmol/L (4-12); Aspartate Amino Transferase 34 U/L (14-36); Bilirubin,Total 0.6 mg/dL (0.2-1.3); Blood Urea Nitrogen 19 mg/dL (7-17); Calcium 9.8 mg/dL (8.4-10.2); Carbon Dioxide 28 mmol/L (22-30); Chloride 103 mmol/L (98-107); Estimated Glomerular Filt Rate 59; Glucose 101 mg/dL (65-110); Potassium 4.2 mmol/L (3.4-5.0); Sodium 137 mmol/L (137-145)
[2024-09-16 17:48] LABS: Hemoglobin A1C 5.8 % (<5.7)
== END 2024-09-16 16:42 | disposition home or self-care (01) ==
PROVIDERS: PCP Family Medicine; Visit Provider Family Medicine
DX: R73.03 Prediabetes (principal); R53.83 Other fatigue
CPT/HCPCS: 36415; 80053; 83036; 85025

== ENCOUNTER 2025-01-04 00:30 | Day surgery (SDC) | payer MEDICARE, SELFPAY ==
[2024-12-29 09:17] VITALS: BMI 25.0
--- OUTSIDE RECORDS SUMMARY | 2025-01-04 00:32 | XMS_ITS | Encounter Summary ---
Author Organization [facility] Address [address] [place] [address] Phone Care Team Providers Care Termite Control Service Representative Name Role Phone Tanner Maier MD Primary Care Provider +1 [phone] Encounter Details Date Type Department Care Team (Latest Contact Info) Description 09/13/2023 Orders Only [facility] Scanning, Provider Social History Tobacco Use Types Packs/Day Years Used Date Smoking Tobacco: Former Smokeless Tobacco: Never Comments Unknown Sex and Gender Information Value Date Recorded Sex Assigned at Not on file Legal 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
--- OUTSIDE RECORDS SUMMARY | 2025-01-04 00:32 | XMS_ITS | Clinical Summary ---
Author Organization [employer] [facility] Address [address] [facility] [place] [address] Care Team Providers Care Physical Education Teacher Name Role Phone Tanner Maier MD Primary Care Provider [phone]- [phone] Source Comments [employer] [facility],non-owned Affiliates and Associated Physician Practices is amultiple site organization consisting of ambulatory clinics and hospital sitesin [place], [place], [place] and [place]. This disclosure is being madepursuant to the Care Everywhere program and may not contain all information available regarding this patient. Last updated 18.[employer] [facility] Allergies No known active allergies Medications * Be aware that medications may not be up to date on this document. Alwaysverify current medications with the patient. ALPRAZolam (Xanax) 0.25 MG tablet Take 1 (one) tablet by mouth once daily 04/03/20 23 Active aspirin EC (Ecotrin) 81 MG tablet Take 1 (one) tablet by mouth once daily Active Cholecalciferol (vitamin D3) 1.25 MG (81265 UT) capsule Take 1 (one) capsule by [...] 5 or 0.5MG/DOS) 2 MG/1.5ML Solution Pen-injector (Bokecc) Inject 0.25 (one-quarter) mg subcutaneously every 7 days Active mirabegron ER 24hr (Myrbetriq) 50 MG tablet Take 1 (one) tablet by mouth once daily 30 tablet 11 05/29/19 24 Active Active Problems Problem Noted Date Diagnosed Date H/O mitral valve repair 09/11/2021 05/12/20 Chest pain 08/10/2020 05/12/2023 Memory loss 12/05/2018 [...] on file Legal Sex Female 6:45 PM EPIDEMIOLOGY INTERN Gender Identity Not on file Sexual Orientation Not on file Last Filed Vital Signs Vital Sign Reading Time Taken Comments Blood Pressure 104/68 05/29/2023 1:32 PM EPIDEMIOLOGY INTERN Pulse - - Temperature 36.2 C (97.2 F) 05/29/2023 1:32 PM EPIDEMIOLOGY INTERN Respiratory Rate - - Oxygen Saturation - - Inhaled Oxygen Concentration - - Weight 68.2 kg (150 lb 6.4 oz) 05/29/2023 1:32 P M EPIDEMIOLOGY INTERN Height 165.1 cm (5' 5) 05/29/2023 1:32 PM EPIDEMIOLOGY INTERN Body Mass Index 25.03 05/29/2023 1:32 PM EPIDEMIOLOGY INTERN Plan of Treatment Health Maintenance Due Date [...] MEDICARE AWV CALENDAR YEAR 2024 INFLUENZA VACCINE (#1) 2025 02/22/2023, 2009 Respiratory Syncytial Virus (RSV) Vaccine Pt: or [...] age to complete this topic Insurance [facility] AETNA MEDICARE ADV Care Teams Physical Education Teacher Relationship Specialty Start Date End Date Tanner Maier MD [address] [place] [address] PCP - General 02/27/10
--- OUTSIDE RECORDS SUMMARY | 2025-01-04 00:32 | XMS_ITS | Clinical Summary ---
Author Organization [facility] Address [address] [place] [address] Phone Care Team Providers Care Parish Visitor Name Role Phone Tanner Maier MD Primary Care Provider [phone] Allergies No known active allergies Medications aspirin [...] 9 Active clobetasol (TEMOVATE) 0.05 % external solutionIndicat [...] doses total. 25 tablet 3 1 Active cholecalciferol (VITAMIN D-3) 50,000 unit capsule [...] denosumab (PROLIA SUBQ) 60 mg 3 Active fluvastatin (LESCOL) 20 mg capsule TAKE 1 CAPSULE BY MOUTH NIGHTLY 90 capsule 3 5 Active budesonide-form oteroL (SYMBICORT) 160-4.5 mcg/actuation inhaler Inhale 2 puffs 2 (two) times a day Rinse mouth with water after use. Do not swallow. 3 each 3 5 Active inhalational spacing device spacer 1 each daily 1 each 2 5 Active budesonide-form oteroL (SYMBICORT) 160-4.5 mcg/actuation inhaler INHALE 2 PUFFS BY MOUTH TWICE DAILY . RINSE MOUTH WITH WATER AFTER USE. DO NOT SWALLOW. 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 Surgical follow-up care 09/01/2014 Mitral valve insufficiency 12/14/2013 Mitral valve disease 04/14/2013 Encounters Date Type Department Care Team Description 12/17/2024 2:30 PM CDT Office Visit [facility] [address] [place] [address] Hunter Cruz MD Mild intermittent asthma, unspecified whether complicated (Primary Dx); Dyspnea on exertion 12/17/2024 1:33 PM CDT - 12/17/2024 11:59 PM CDT Hospital Encounter [facility] [address] [place] [address] Dyspnea on exertion; Mild intermittent asthma, unspecified whether complicated Discharge Disposition: Discharge to home or self [...] Date Smoking Tobacco: Former Smokeless Tobacco: Never Tobacco Cessation:Counseling Given: Not Answered AUDIT-C Answer Date Recorded Q1: How often do you have a drink containing alc ohol? 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 Gender Identity Not on file Sexual Orientation Not on file Obstetrics History Last Filed Vital Signs Vital Sign Reading Time Taken Comments Blood Pressure 118/65 12/17/2024 2:09 PM CDT Pulse 65 12/17/2024 2:09 PM CDT Temperature 36.7 C (98 F) 12/17/2024 2:09 PM CDT Respiratory Rate 18 06/04/2024 2:10 PM MACHINE FIXER Oxygen Saturation 98% 12/17/2024 2:09 PM CDT Inhaled Oxygen Concentration - - Weight 69.4 kg (153 lb) 12/17/2024 2:09 PM CDT Height 162.6 cm (5' 4) 12/17/2024 2:09 PM CDT Body Mass Index 26.26 12/17/2024 2:09 PM CDT Plan of Treatment Health Maintenance Due Date Last Done Comments Colon Cancer Screening-Colonoscopy 1950 Depression Screening 1950 Fall Risk Assessment 1950 Hepatitis C Screening 1950 Osteoporosis Screening-Bone Density Scan 1950 DTaP/Tdap/Td Vaccine (1 - Tdap) 1962 Hepatitis B Screening 1969 Pneumococcal vaccine 65+ (1 of 2 - PCV) 1970 Breast Cancer Screening-Mammogram 10/31/2013 013, 10/27/2012 Well Visit 65+ 2016 Influenza Vaccine (#1) 2025 03/13/2010 Zoster Vaccine Completed 10/31/2017, 08/23/2017 Procedures Procedure Name Priority Date/Time Associated Diagnosis Comments PULMONARY FUNCTION TEST (PFT) Routine 12/17/2024 2:01 PM CDT Dyspnea on exertion Mild intermittent asthma, unspecified whether complicated SCREENING MAMMOGRAM W REBEL Routine 10/31/2012 10:24 AM CDT from Last 3 Months or Most Recently Relevant to Health Maintenance Results * Pulmonary Function Test - (12/17/2024 2:01 PM CDT) FVC PRE 3.16 L [facility] FVC %PRE PRED 118 % [facility] FEV1 PRE 2.06 L [facility] FEV1 %PRE PRED 99 % [facility] FEV1/FVC PRE 65.0 % [facility] Anatomical Region Laterality Modality PFT 12/17/2024 1:46 PM CDT Narrative 12/17/2024 3:30 PM CDT PFT performed at:->[facility] Adult PFT [facility]- [facility] Procedure:->Spirometry Pulmonary Function Test Interpretation SPIROMETRY: There is scooping of the expiratory limb of the flow-volume curve, consistent with expiratory airflow obstruction. The FEV1 and FVC are normal. The inspiratory loop is appropriate for the expiratory flow abnormality. Impression: There is a minimal obstructive defect. Compared with most recent study, there has [...] and %HbO2 is age dependent. However, the [facility] Function Laboratory defines hypoxemia as a PaO2 <56 mm Hg or a %HbO2 <89%. Starting on May of 2024 the [facility] Function Laboratory utilizes race neutral GLI Global normative equations. us Hunter Cruz MD PFT ORDERABLES Final Result * Screening Mammogram W Rebel (10/31/2012 10:24 AM CDT) Anatomical Region Laterality Modality Breast N/A Mammography 10/31/2012 10:2 4 AM CDT Narrative 10/31/2012 11:07 AM CDT Evelyn CHRISTIE M.D. FINAL REPORT The radiology attending physician has personally reviewed this study, and has reviewed and/or edited this written report and agrees with it. ACC# Date Time Exam [id number] Oct 31, 2012 10:24:00 [facility] [id number] Diag Mammogram Unilateral R Technologist(s): Collette Pradhan; ; [id number] Oct 31, 2012 10:24:00 [facility] [id number] Unilateral Tomosynthesis R Technologist(s): Collette Pradhan; ; [id number] Oct 31, 2012 10:46:00 [facility] [id number] Sono Breast (Unilateral) R EXAMINATION: RIGHT UNILATERAL FULL FIELD DIGITAL DIAGNOSTIC MAMMOGRAM, DIGITAL RIGHT BREAST TOMOSYNTHESIS, AND RIGHT BREAST SONOGRAM HISTORY: 62 year-old woman with an abnormal screening mammogram. Recent screening mammogram performed at [facility] on 10/27/2012 demonstrated a possible area [...] agrees with it. ACC# Date Time Exam [id number] Oct 31, 2012 10:24:00 [facility] [id number] Diag Mammogram Unilateral R Technologist(s): Collette Pradhan; ; [id number] Oct 31, 2012 10:24:00 [facility] [id number] Unilateral Tomosynthesis R Technologist(s): Collette Pradhan; ; [id number] Oct 31, 2012 10:46:00 [facility] [id number] Sono Breast (Unilateral) R EXAMINATION: RIGHT UNILATERAL FULL FIELD DIGITAL DIAGNOSTIC MAMMOGRAM, DIGITAL RIGHT BREAST TOMOSYNTHESIS, AND RIGHT BREAST SONOGRAM HISTORY: 62 year-old woman with an abnormal screening mammogram. Recent screening mammogram performed at [facility] on 10/27/2012 demonstrated a possible area [...] on Oct 31 2012 11:07A Historical Provider IMG MAMMO PROCEDURES Avis l Result from Last 3 Months or Most Recently Relevant to Health [place] [address] [employer] [facility] MED[facility] Address: [facility] [id number] [place] [address] [facility] MEDICARE AET MEDICARE Care Teams Parish Visitor Relationship Specialty Start Date End Date Tanner Maier MD PCP - General 11/19/16
--- OUTSIDE RECORDS SUMMARY | 2025-01-04 00:32 | XMS_ITS | Encounter Summary ---
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
[2025-01-04 07:20] VITALS: BP 106/55; PULSE 73; RESP 16; TEMP 36.1; O2SAT 97
[2025-01-04] MEDS: LACTATED RINGERS 1,000 ML 150 ML IV CONT (07:29)
--- NOTE | 2025-01-04 08:01 | WPDANESEPPF ---
Anes - Initial Pre Proc Eval Procedure: Operation Date: 01/04/25 08:30 Proposed Procedures p Screening Colonoscopy - Toni Burden MD Date/Time: 01/04/25 08:01 Surgeon: Toni Burden MD Pre Op Diagnosis: screening Patient Data Age: 74 Gender: F Height: 1.65 m Weight: 67.6 kg Last Vital Signs Temp 36.1 C L 01/04/25 07:20 Pulse 73 01/04/25 07:20 Resp 16 01/04/25 07:20 BP 106/55 L 01/04/25 07:20 Pulse Ox 97 01/04/25 07:20 O2 Del Method Room Air 01/04/25 07:20 Allergies Allergy/AdvReac Type Severity Reaction Status Date / Time rosuvastatin (From Crestor) AdvReac tendinopath Verified 01/04/25 07:16 y Home Medications ?Medication ?Instructions ?Recorded ?Confirmed ?Type aspirin 81 mg tablet,delayed 81 mg PO DAILY 06/22/19 01/04/25 History release (Joseluis Low Dose Aspirin) melatonin 5 mg capsule 5 mg PO HS 07/20/20 12/29/24 History trazodone 50 mg tablet 100 mg (2 x 50 mg) PO QHS PRN 10/19/21 12/29/24 Rx insomnia #180 tabs triamcinolone acetonide 0.1 % 1 applic topical QID #80 grams 05/31/22 12/29/24 Rx topical cream cholecalciferol (vitamin D3) 1,250 1,250 mcg PO WEEKLY #13 caps 11/11/23 01/04/25 Rx mcg (50,000 unit) capsule clobetasol 0.05 % scalp solution 1 applic topical BID 1 week #75 mL 03/09/24 12/29/24 Rx fluvastatin 20 mg capsule 20 mg PO HS 03/09/24 01/04/25 History meloxicam 15 mg tablet 15 mg PO DAILY PRN pain 03/09/24 01/04/25 History methocarbamol 750 mg tablet See Rx Instructions .Route 09/02/24 12/29/24 Rx .COMPLEX #30 tabs alprazolam 0.25 mg tablet 0.25 mg PO DAILY #90 tabs 09/04/24 01/04/25 Rx sodium sul 1.479 gram-potas ch See Rx Instructions PO PER PKG DIR 09/11/24 12/29/24 Rx 0.188 gram-magnes sul 0.225 gram #24 tabs tablet (Sutab) azelastine 0.05 % eye drops 1 drp EACH EYE PRN dry 09/18/24 12/29/24 History budesonide-formoterol HFA 160 2 inh inhalation Q12H 09/18/24 01/04/25 History mcg-4.5 mcg/actuation aerosol inhaler codeine 10 mg-guaifenesin 100 mg/5 5 ml PO Q4H PRN cough #120 mL 09/18/24 12/29/24 Rx mL oral liquid hydrocortisone acetate 25 mg 25 mg RECTAL BID PRN hemorrhoids 09/18/24 12/29/24 Rx rectal suppository #24 ea linaclotide 72 mcg capsule 72 mcg PO DAILY #90 caps 09/18/24 12/29/24 Rx (Linzess) prednisolone acetate 1 % eye 1 drp EACH EYE PRN 09/18/24 12/29/24 History drops,suspension denosumab 60 mg/mL subcutaneous 60 mg subcut [id number] #1 mL 10/14/24 12/29/24 Rx syringe (Prolia) estradiol 0.01% (0.1 mg/gram) 0.5 appful vaginal 3XW #129 grams 10/19/24 01/04/25 Rx vaginal cream ondansetron HCl 4 mg tablet 4 mg PO Q6H PRN nausea and 10/19/24 12/29/24 Rx vomiting #20 tabs omeprazole 40 mg capsule,delayed 40 mg PO DAILY #90 caps 11/24/24 01/04/25 Rx release hydrocortisone 2.5 % topical cream 1 applic RECTAL TID PRN itching 12/04/24 12/29/24 Rx with perineal applicator #30 grams Patient hx anesthesia problems: none Family hx anesthesia problems: none Results Review: All pre-operative results and documents have been reviewed as part of the pre-operative evaluation. [facility] Past Medical History Medical History Prediabetes Stover's esophagus Unspecified vitamin D deficiency Osteoporosis History of measles Cognitive impairment Insomnia Chest pain Gluteal tendinitis of left buttock Medication side effects present Need for SBE (subacute bacterial endocarditis) prophylaxis History of bone density study (~08/03/16) osteopenia Mammogram normal (~08/03/16) History of Papanicolaou smear of cervix (~04/23/16) HPV neg Acute, but ill-defined, cerebrovascular disease Polyp of cervix uteri Postmenopausal Chronic constipation Hepatitis A Hyperlipidemia Surgical History Surgical History History of colonoscopy (~06/29/19) History of colonoscopy (~12/17/12) Dr Galdamez H/O mitral valve repair ~2014 Family History Family History Mother , age 79 Diabetes mellitus, Onset Age: 79 Depression Hypertension Family history of Alzheimer's disease Family history of malignant neoplasm of breast in first degree relative Lewy body dementia Father , age 83 Hypertension Family history of cardiovascular disease Family history of kidney disease Malignant neoplasm of prostate, Onset Age: 83 Congestive heart failure Sibling Heart disease heart valve Sibling , in childhood No problems noted. Sibling Hypertension Daughter Age: 44 Overweight Daughter Age: 42 Overweight Daughter Age: 32 Rheumatoid arthritis Daughter Age: 27 No problems noted. Social History Social History Social History: coffee every morning 2 cups Smoking status: Never smoker Alcohol intake: current Drinks per week: 1 Substance use: former Substance use type: does not use Lack of Transportation: No Lack of Food: Never True Current Housing: I Have Housing Concerned About Future Housing: No Difficulty Paying Gas/Electric Bills: No Difficulty Paying for Meds: No Currently Unemployed: No Education: Master's Degree or Higher Difficulty w/ Childcare or Family Care: No Living arrangements: with family Spiritual care concerns: No Anes - Eval Final PreProcedure Day of Procedure 01/04/25 08:01 Patient weight: normal Heart: regular rate and rhythm Lungs: clear to auscultation Airway: Mallampati scale class II Neurological: alert and oriented Last oral intake: >/= 8 hours ASA classification: III Emergent: no Anesthetic plan: proceed Anesthesia type and monitoring: general GIVS and standard monitoring Results Review: All pre-operative results and documents have been reviewed as part of the pre-operative evaluation. Informed Consent: The patient's anesthetic plan and its attendant risks and benefits were discussed with the patient/family/POA. Questions were solicited and answers provided to the satisfaction of the patient/family/POA.
--- NOTE | 2025-01-04 08:09 | PM.HPGS ---
History of Present Illness History of Present Illness Consent: Risks, benefits, and alternatives have been discussed and questions answered. Patient agrees to proceed with procedure. Chief complaint: screening Narrative: Stephanie Treviño is a 74 year old female with history of colon polyp, last colonoscopy 2019. Review of Systems Review of Systems: All systems reviewed & are unremarkable except as noted in HPI and below PMFSH Past Medical History Medical History (Updated 01/04/25 @ 08:09 by Toni Burden MD) Colon polyp Prediabetes Stover's esophagus Unspecified vitamin D deficiency Osteoporosis History of measles Cognitive impairment Insomnia Chest pain Gluteal tendinitis of left buttock Medication side effects present Need for SBE (subacute bacterial endocarditis) prophylaxis History of bone density study (~08/03/16) osteopenia Mammogram normal (~08/03/16) History of Papanicolaou smear of cervix (~04/23/16) HPV neg Acute, but ill-defined, cerebrovascular disease Polyp of cervix uteri Postmenopausal Chronic constipation Hepatitis A Hyperlipidemia Surgical History Surgical History History of colonoscopy (~06/29/19) History of colonoscopy (~12/17/12) Dr Galdamez H/O mitral valve repair ~2014 Family History Family History Mother , age 79 Diabetes mellitus, Onset Age: 79 Depression Hypertension Family history of Alzheimer's disease Family history of malignant neoplasm of breast in first degree relative Lewy body dementia Father , age 83 Hypertension Family history of cardiovascular disease Family history of kidney disease Malignant neoplasm of prostate, Onset Age: 83 Congestive heart failure Sibling Heart disease heart valve Sibling , in childhood No problems noted. Sibling Hypertension Daughter Age: 44 Overweight Daughter Age: 42 Overweight Daughter Age: 32 Rheumatoid arthritis Daughter Age: 27 No problems noted. Social History Social History Social History: coffee every morning 2 cups Smoking status: Never smoker Alcohol intake: current Drinks per week: 1 Substance use: former Substance use type: does not use Lack of Transportation: No Lack of Food: Never True Current Housing: I Have Housing Concerned About Future Housing: No Difficulty Paying Gas/Electric Bills: No Difficulty Paying for Meds: No Currently Unemployed: No Education: Master's Degree or Higher Difficulty w/ Childcare or Family Care: No Living arrangements: with family Spiritual care concerns: No Meds Home Medications and Allergies Home Medications ?Medication ?Instructions ?Recorded ?Confirmed ?Type aspirin 81 mg tablet,delayed 81 mg PO DAILY 06/22/19 01/04/25 History release (Joseluis Low Dose Aspirin) melatonin 5 mg capsule 5 mg PO HS 07/20/20 12/29/24 History trazodone 50 mg tablet 100 mg (2 x 50 mg) PO QHS PRN 10/19/21 12/29/24 Rx insomnia #180 tabs triamcinolone acetonide 0.1 % 1 applic topical QID #80 grams 05/31/22 12/29/24 Rx topical cream cholecalciferol (vitamin D3) 1,250 1,250 mcg PO WEEKLY #13 caps 11/11/23 01/04/25 Rx mcg (50,000 unit) capsule clobetasol 0.05 % scalp solution 1 applic topical BID 1 week #75 mL 03/09/24 12/29/24 Rx fluvastatin 20 mg capsule 20 mg PO HS 03/09/24 01/04/25 History meloxicam 15 mg tablet 15 mg PO DAILY PRN pain 03/09/24 01/04/25 History methocarbamol 750 mg tablet See Rx Instructions .Route 09/02/24 12/29/24 Rx .COMPLEX #30 tabs alprazolam 0.25 mg tablet 0.25 mg PO DAILY #90 tabs 09/04/24 01/04/25 Rx sodium sul 1.479 gram-potas ch See Rx Instructions PO PER PKG DIR 09/11/24 12/29/24 Rx 0.188 gram-magnes sul 0.225 gram #24 tabs tablet (Sutab) azelastine 0.05 % eye drops 1 drp EACH EYE PRN dry 09/18/24 12/29/24 History budesonide-formoterol HFA 160 2 inh inhalation Q12H 09/18/24 01/04/25 History mcg-4.5 mcg/actuation aerosol inhaler codeine 10 mg-guaifenesin 100 mg/5 5 ml PO Q4H PRN cough #120 mL 09/18/24 12/29/24 Rx mL oral liquid hydrocortisone acetate 25 mg 25 mg RECTAL BID PRN hemorrhoids 05/02/25 08/12/25 Rx rectal suppository #24 ea linaclotide 72 mcg capsule 72 mcg PO DAILY #90 caps 09/18/24 12/29/24 Rx (Linzess) prednisolone acetate 1 % eye 1 drp EACH EYE PRN 09/18/24 12/29/24 History drops,suspension denosumab 60 mg/mL subcutaneous 60 mg subcut [id number] #1 mL 10/14/24 12/29/24 Rx syringe (Prolia) estradiol 0.01% (0.1 mg/gram) 0.5 appful vaginal 3XW #129 grams 10/19/24 01/04/25 Rx vaginal cream ondansetron HCl 4 mg tablet 4 mg PO Q6H PRN nausea and 10/19/24 12/29/24 Rx vomiting #20 tabs omeprazole 40 mg capsule,delayed 40 mg PO DAILY #90 caps 11/24/24 01/04/25 Rx release hydrocortisone 2.5 % topical cream 1 applic RECTAL TID PRN itching 12/04/24 12/29/24 Rx with perineal applicator #30 grams Allergies Allergy/AdvReac Type Severity Reaction Status Date / Time rosuvastatin (From Crestor) AdvReac tendinopath Verified 01/04/25 07:16 y Vital Signs Vital Signs - 24 hr 01/04/25 07:20 Temperature 97.0 F L Pulse Rate 73 Respiratory Rate 16 Blood Pressure 106/55 L Pulse Oximetry 97 Oxygen Delivery Room Air Exam Const: General: comfortable and no acute distress HENMT: Face/Nose/Sinus: Normal nares present Eyes: General: appearance normal, both eyes and all related structures Neck: Neck: no JVD Resp: Auscultation: clear to auscultation bilaterally Cardio: Rate: regular rate Rhythm: regular rhythm GI: Inspection: non-distended GI Palp: Yes Soft to palpation Skin: General skin exam: normal color Neuro: Speech: normal speech Extrem: General: normal to inspection Psych: Mental Status: mental status grossly normal Assessment and Plan Assessment and plan (1) Colon polyp: Code(s): K63.5 - Polyp of colon Status: Acute Assessment and Plan: colonoscopy (2) Chronic constipation: Code(s): K59.09 - Other constipation Status: Acute Assessment and Plan: she would like to see us in office
[2025-01-04 08:31] VITALS: BP 93/59; PULSE 70; RESP 16; O2SAT 98
[2025-01-04 08:41] VITALS: BP 93/54; PULSE 64; RESP 16; O2SAT 97
[2025-01-04 08:51] VITALS: BP 95/55; PULSE 64; RESP 16; O2SAT 98
== END 2025-01-04 09:04 | disposition home or self-care (01) ==
PROVIDERS: PCP Family Medicine; Referring Provider Family Medicine; Visit Provider Internal Medicine Gastroenterology
PROC: 0DJD8ZZ Inspection of Lower Intestinal Tract, Via Natural or Artificial Opening Endoscopic (ICD-10-PCS; CPT 45378; principal; 2025-01-04 08:30)
DX: Z12.11 Encounter for screening for malignant neoplasm of colon (principal); K64.8 Other hemorrhoids; K57.30 Diverticulosis of large intestine without perforation or abscess without bleeding; E78.5 Hyperlipidemia, unspecified; R73.03 Prediabetes; E55.9 Vitamin D deficiency, unspecified; M81.0 Age-related osteoporosis without current pathological fracture; G47.00 Insomnia, unspecified; K59.09 Other constipation; Z79.82 Long term (current) use of aspirin; Z79.51 Long term (current) use of inhaled steroids; Z79.891 Long term (current) use of opiate analgesic; Z95.2 Presence of prosthetic heart valve; Z86.0100 Personal history of colon polyps, unspecified; Z87.19 Personal history of other diseases of the digestive system; Z80.3 Family history of malignant neoplasm of breast; Z80.42 Family history of malignant neoplasm of prostate; Z82.49 Family history of ischemic heart disease and other diseases of the circulatory system
CPT/HCPCS: G0105; J2704; J7120

== ENCOUNTER 2025-03-19 13:52 | Outpatient (CLI) | payer MEDICARE, SELFPAY ==
--- NOTE | ~2025-03-19 | DEXA_ITS ---
Bone Density Report Name: CHEL EMERY Age: 74 Sex: Female Ethnicity: White Date of : 1950 Indication: osteopenia; monitoring treatment; height loss; Referring Provider: JANIE SALINAS Study: Bone densitometry was performed. Exam Date: March 19, 2025 Accession number: [id number] Bone Density: Region BMD T-score Z-score Classification AP Spine(L1-L4) 0.893 -1.4 0.9 Osteopenia Femoral Neck (Left) 0.757 -0.8 1.2 Normal Total Hip (Left) 0.858 -0.7 1.0 Normal Femoral Neck (Right) 0.787 -0.6 1.5 Normal Total Hip (Right) 0.856 -0.7 1.0 Normal Total Hip Mean 0.857 -0.7 1.0 Normal World Health Organization criteria for BMD impression classify patients as: Normal (T-score at or above -1.0), Osteopenia (T-score between -1.0 and -2.5), or Osteoporosis (T-score at or below -2.5). 10-year Fracture Risk: FRAX not reported because: Treated for osteoporosis Previous Exams: -- Region Exam Age BMD T-score BMD Change BMD Change Date g/cm2 vs Baseline vs Previous -- AP Spine (L1-L4) 03/19/2025 74 0.893 -1.4 13.3%* 2.0% 03/18/2023 72 0.875 -1.6 11.0%* 14.5%* 10/26/2020 70 0.764 -2.6 -3.1%* -3.1%* 08/03/2016 66 0.788 -2.4 Total Hip(Left) 03/19/2025 74 0.858 -0.7 5.8%* -4.0%* 03/18/2023 72 0.893 -0.4 10.2%* 13.2%* 10/26/2020 70 0.789 -1.3 -2.6% -2.6% 08/03/2016 66 0.810 -1.1 Total Hip(Right) 03/19/2025 74 0.856 -0.7 2.9% -2.1% 03/18/2023 72 0.875 -0.6 5.1%* 9.6%* 10/26/2020 70 0.798 -1.2 -4.1%* -4.1%* 08/03/2016 66 0.832 -0.9 -- *Denotes significance at 95% confidence level, LSC for AP Spine = 0.022 g/cm2, LSC for Total Hip = 0.027 g/cm2 Clinical Information Provided by Patient: Is being treated for osteoporosis Has used the following medications: Fosamax (i.e. alendronate), Prolia (i.e. denosumab), Vitamin D, Calcium Patient maximum height was 66 Menopause Age: 53 Drinks caffeinated beverages Onset of menses at age 13 Number of children 4 Impression: The patient has low bone mass, based on the Total Spine T-score. The BMD for the Total Hip(Left) decreased, changing by -4.0% since the last DXA exam. Discussion: SIGNIFICANT BONE LOSS OBSERVED. Adherence to therapy (including calcium and vitamin D intake) should be assessed. If compliance is not a factor, review management and exclusion of secondary causes of bone loss. It is important to ask patients whether they are taking their medications and to encourage continued and appropriate compliance with their osteoporosis therapies to reduce fracture risk. It is also important to review their risk factors and encourage appropriate calcium and vitamin D intakes, exercise, fall prevention and other lifestyle measures. Follow-Up: Consider a repeat BMD and Vertebral Fracture Assessment (VFA) exam in 2 years or sooner if medically necessary, to reassess this patient's status. Reported by: JILLIAN on 03/19/2025 2:16:00 PM. Reviewed, dictated and finalized at location A.
== END 2025-03-19 13:53 | disposition home or self-care (01) ==
LOC: MICIMG 13:53
PROVIDERS: PCP Family Medicine; Visit Provider Family Medicine
DX: M85.88 Other specified disorders of bone density and structure, other site (principal); E55.9 Vitamin D deficiency, unspecified
CPT/HCPCS: 77080

== ENCOUNTER 2025-04-05 14:19 | Outpatient (CLI) | payer MEDICARE, SELFPAY ==
--- NOTE | ~2025-04-05 | XR_ITS ---
EXAMINATION: XR abdomen/kub 1V, 04/05/2025 14:29 GEOLOGIST PETROLEUM HISTORY: Other constipation x 5 days, nausea, abdominal pain COMPARISON: No comparisons available. Technique: 3 view. Findings: Moderate fecal content, no dilated bowel loops No free air. No abnormal calcifications No acute osseous abnormality. Impression: 1. No acute abnormality. Reviewed, dictated and finalized at location P. OGIST PETROLEUM Impression: 1. No acute abnormality.
== END 2025-04-05 14:20 | disposition home or self-care (01) ==
LOC: GOSHIMG 14:20
PROVIDERS: PCP Nurse Practitioner Family; Visit Provider Nurse Practitioner Family
DX: K59.09 Other constipation (principal)
CPT/HCPCS: 74018

== ENCOUNTER 2025-04-05 14:47 | Outpatient (CLI) | payer MEDICARE, SELFPAY ==
[2025-04-05 18:32] LABS: Hematocrit 38.6 % (37.0-47.0); Hemoglobin 12.5 g/dL (12.0-15.0); Immature Granulocyte Percent A 0.2 % (0-0.5); Lymphocytes Absolute Auto 1.32 K/mm3 (0.9-3.2); Mean Corpuscular HGB Conc 32.4 g/dl (32-36); Mean Corpuscular Hemoglobin 31.1 pg (26-34); Mean Corpuscular Volume 96.0 fl (80-100); Nucleated Red Blood Cells Absolute Auto 0.000 K/mm3 (0.0-0.012); Nucleated Red Blood Cells Perc 0.0 % (0.0-0.2); Platelet Count Result 194 k/mm3 (150-375); Red Blood Count 4.02 M/mm3 (4.2-5.4); White Blood Count 5.1 K/mm3 (4.5-10.0)
[2025-04-05 18:44] LABS: Alanine Aminotransferase 17 U/L (6-35); Albumin Level 4.2 g/dL (3.5-5.1); Alkaline Phosphatase 58 U/L (38-126); Anion Gap 2 mmol/L (4-12); Aspartate Amino Transferase 32 U/L (14-36); Bilirubin,Total 0.6 mg/dL (0.2-1.3); Blood Urea Nitrogen 14 mg/dL (7-17); Calcium 9.9 mg/dL (8.4-10.2); Carbon Dioxide 30 mmol/L (22-30); Chloride 106 mmol/L (98-107); Cholesterol 207 mg/dL (0-200); Estimated Glomerular Filt Rate > 60; Glucose 99 mg/dL (65-110); HDL Direct 78 mg/dL; Potassium 4.6 mmol/L (3.4-5.0); Sodium 138 mmol/L (137-145); Total Protein 7.2 g/dL (6.3-8.2); Triglycerides 54 mg/dL (<150)
[2025-04-05 19:36] LABS: Thyroid Stimulating Hormone 0.557 uIU/mL (0.465-4.680)
[2025-04-05 20:09] LABS: Hemoglobin A1C 6.0 % (<5.7)
--- OUTSIDE RECORDS SUMMARY | 2025-04-06 00:28 | XMS_ITS | Encounter Summary ---
Author Organization [facility] Address [address] [place] [address] Phone Care Team Providers Care Ice Cream Vendor Name Role Phone Tanner Maier MD Primary Care Provider [phone] Encounter Details Date Type Department Care Team (Latest Contact Info) Description 09/13/2023 Orders Only [facility] Scanning, Provider Social History Tobacco Use Types Packs/Day Years Used Date Smoking Tobacco: Former Smokeless Tobacco: Never Comments Unknown Sex and Gender Information Value Date Recorded Sex Assigned at Not on file 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
--- OUTSIDE RECORDS SUMMARY | 2025-04-06 00:29 | XMS_ITS | Clinical Summary ---
Author Organization [facility] Address [address] [place] [address] Care Team Providers Care Neurological Physiotherapist Name Role Phone Tanner Maier MD Primary Care Provider [phone] Source Comments [facility],non-owned Affiliates and Associated Physician Practices is amultiple site organization consisting of ambulatory clinics and hospital sitesin [place], [place], [place] and [place]. This disclosure is being madepursuant to the Care Everywhere program and may not contain all information available regarding this patient. Last updated 18.[facility] Allergies No known active allergies Medications * Be aware that medications may not be up to date on this document. Alwaysverify current medications with the patient. ALPRAZolam (Xanax) 0.25 MG tablet Take 1 (one) tablet by mouth once daily 04/03/20 23 Active aspirin EC (Ecotrin) 81 MG tablet Take 1 (one) tablet by mouth once daily Active Cholecalciferol (vitamin D3) 1.25 MG (52262 UT) capsule Take 1 (one) capsule by [...] 5 or 0.5MG/DOS) 2 MG/1.5ML Solution Pen-injector ([employer]) Inject 0.25 (one-quarter) mg subcutaneously every 7 [...] Years Used Date Smoking Tobacco: Former Cigarettes 0 Q uit: 1973 Passive Smoke Exposure: Never Smokeless Tobacco: Never Tobacco Cessation:Counseling Given: Not Answered Alcohol Use Standard Drinks/Week Comments Yes 1 (1 standard drink = 0.6 oz pur e alcohol) Comments No Sex and Gender Information Value Date Recorded Sex Assigned at Not on file 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 Gender Identity Not on file Sexual Orientation Not on file Last Filed Vital Signs Vital Sign Reading Time Taken Comments Blood Pressure 104/68 05/29/2023 1:32 PM CIGARETTE PAPER TESTER Pulse - - Temperature 36.2 C (97.2 F) 05/29/2023 1:32 PM CIGARETTE PAPER TESTER Respiratory Rate - - Oxygen Saturation - - Inhaled Oxygen Concentration - - Weight 68.2 kg (150 lb 6.4 oz) 05/29/2023 1:32 P M CIGARETTE PAPER TESTER Height 165.1 cm (5' 5) 05/29/2023 1:32 PM CIGARETTE PAPER TESTER Body Mass Index 25.03 05/29/2023 1:32 PM CIGARETTE PAPER TESTER Plan of Treatment Health Maintenance Due Date [...] of 2) 2001 MAMMOGRAM 10/31/2014 10/31/2012, 10/27/2012 DEPRESSION SCREENING 05/20/2024 MEDICARE AWV CALENDAR YEAR 2024 COVID-19 VACCINE ( season) 2025 02/22/2022, 08/25/2021, 03/17/2021, Additional history exists INFLUENZA VACCINE (#1) 2025 02/22/2023, 2009 Respiratory [...] patient's age to complete this topic Insurance [facility] [employer]ET[employer] MEDICARE ADV Care Teams Neurological Physiotherapist Relationship Specialty Start Date End Date Tanner Maier MD [address] [place] [address] PCP - General 02/27/10
--- OUTSIDE RECORDS SUMMARY | 2025-04-06 00:30 | XMS_ITS | Encounter Summary ---
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
== END 2025-04-05 14:48 | disposition home or self-care (01) ==
PROVIDERS: PCP Nurse Practitioner Family; Visit Provider Family Medicine
DX: E78.5 Hyperlipidemia, unspecified (principal); R73.03 Prediabetes; M81.0 Age-related osteoporosis without current pathological fracture; K59.09 Other constipation
CPT/HCPCS: 36415; 80053; 80061; 82306; 83036; 84443; 85025

== ENCOUNTER 2025-05-03 09:53 | Outpatient (CLI) | payer MEDICARE, SELFPAY ==
--- NOTE | ~2025-05-03 | US_ITS ---
EXAMINATION: US abdomen complete DATE: 05/03/2025 10:49 INDICATION: Constipation TECHNIQUE: Multiple grayscale and Doppler ultrasound images of the abdomen were obtained. COMPARISON: None FINDINGS: The pancreas is not completely visualized. Visualized portion of the pancreas liver gallbladder appear normal. Common bile duct: 3 mm Proximated distal abdominal aorta measure 1.9, 1.8 and 0.87 m The spleen is unremarkable. Both kidneys appear normal in size position and echotexture. No free fluid seen. No suspicious masses identified. Hepatopedal flow is noted in the portal vein. IMPRESSION: Abdominal sonographic survey with no gross acute abnormality seen. Reviewed, dictated and finalized at location A. TAX AUDITOR
== END 2025-05-03 09:54 | disposition home or self-care (01) ==
LOC: MICIMG 09:54
PROVIDERS: PCP Nurse Practitioner Family; Visit Provider Nurse Practitioner Family
DX: K59.09 Other constipation (principal)
CPT/HCPCS: 76700